=== PATIENT | male | born 1940 | race Caucasian/White ===

== ENCOUNTER → 2018-12-05 | Outpatient (CLI) | payer MEDICARE ==
[2018-12-05 11:46] LABS: HCT 41.1 % (39.0-53.0); HGB 13.5 gm/dL (13.0-17.5); MCH 30.2 pg (25.0-35.0); MCHC 32.8 g/dL (31.0-37.0); MCV 91.9 fL (80.0-100.0); Mean Platelet Volume 7.7; Platelet Count 314 k/uL (150-450); RBC 4.47 m/uL (4.30-5.90); RDW 14.6 % (11.5-15.5); WBC 9.4 k/uL (3.8-10.6)
[2018-12-05 15:33] LABS: ALT 13 U/L (10-49); AST 22 U/L (14-35); African American GFR (CKD) 55.8 (60.0-200.0); Albumin/Globulin Ratio 2.44 (1.60-3.17); Alkaline Phosphatase 79 U/L (41-126); BUN/Creat Ratio 20.71 Ratio (12.00-20.00); Bilirubin, Conjugated <0.20 mg/dL (0.20-0.40); Calcium 10.5 mg/dL (8.7-10.3); Carbon Dioxide 23.4 mmol/L (21.6-31.8); Chloride 114 mmol/L (96-109); Globulin 1.8 g/dL (1.6-3.3); Glucose 102 mg/dL (70-110); Potassium 5.6 mmol/L (3.5-5.5); Sodium 141 mmol/L (135-145); Total Bilirubin 0.5 mg/dL (0.2-1.2); Total Protein 6.2 g/dL (6.2-8.2)
== END | disposition home or self-care (01) ==
LOC: LABWHC1 11:08
PROVIDERS: ATTEND Nurse Practitioner Family
DX: Z51.81 Encounter for therapeutic drug level monitoring (principal)
CPT/HCPCS: 36415; 80053; 82248; 85027

== ENCOUNTER 2019-04-06 16:15 | Emergency (ER) | payer MEDICARE ==
[2019-04-06 16:28] VITALS: BP 104/72; PULSE 91; RESP 17; TEMP 97.6
--- NOTE | 2019-04-06 16:53 | ED ---
General Adult HPI - General Chief complaint: Fall Stated complaint: fall/elbow bleeding Time Seen by Provider: 04/06/19 16:30 Source: patient Mode of arrival: ambulatory Limitations: no limitations - History of Present Illness Initial comments: 78-year-old male patient presents to the emergency department today for evaluation of bleeding wound to the left elbow. Patient experienced a fall out of bed early this morning. States that he hit his elbow on the dresser. Denies hitting his head or losing consciousness. Patient states that he does take Pl avix and aspirin and has been having bleeding from a wound to the left elbow since. He states that they have tried changing the dressing and holding pressure without relief. He denies any other injuries, bony tenderness, pain with movement of the elbow. Patient denies any headache, neck pain, back pain, chest pain, shortness of breath, dizziness, weakness, abdominal pain, nausea, vomiting, or difficulties with bowel movements or urination. - Related Data Allergies Allergy/AdvReac Type Severity Reaction Status Date / Time morphine Allergy Hallucinati Verified 04/06/19 16:28 ons Review of Systems ROS Statement: Those systems with pertinent positive or pertinent negative responses have been documented in the HPI. ROS Other: All systems not noted in ROS Statement are negative. Past Medical History Past Medical History: Hyperlipidemia, Hypertension Additional Past Medical History / Comment(s): parkinson History of Any Multi-Drug Resistant Organisms: None Reported Past Surgical History: Back Surgery, Orthopedic Surgery Additional Past Surgical History / Comment(s): shunt Past Psychological History: No Psychological Hx Reported Smoking Status: Never smoker Past Alcohol Use History: None Reported Past Drug Use History: Marijuana General Exam Limitations: no limitations General appearance: alert, in no apparent distress, other (This is a well- developed, well-nourished elderly male patient in no acute distress. Vital signs upon presentation are temperature 97.6F, pulse 91, respirations 17, blood pressure 104/72, pulse ox 95% on room air.) Eye exam: Present: normal appearance, PERRL, EOMI. Absent: scleral icterus, conjunctival injection, periorbital swelling Neck exam: Present: normal inspection, full ROM, other (Nontender, no step-off, no deformity to firm midline palpation of the posterior cervical spine. Full range of motion without pain or limitation.). Absent: tenderness, meningismus, lymphadenopathy Respiratory exam: Present: normal lung sounds bilaterally. Absent: respiratory distress, wheezes, rales, rhonchi, stridor Cardiovascular Exam: Present: regular rate, normal rhythm, normal heart sounds. Absent: systolic murmur, diastolic murmur, rubs, gallop, clicks GI/Abdominal exam: Present: soft, normal bowel sounds. Absent: distended, tenderness, guarding, rebound, rigid Extremities exam: Present: full ROM, normal capillary refill, other (There is a 2 cm skin tear noted to the left elbow. No bony tenderness. There is active bleeding noted. Skin is otherwise pink, warm, dry. Cap refills less than 3 seconds. Radial pulses 2+ and equal bilaterally.). Absent: normal inspection, tenderness, pedal edema, joint swelling, calf tenderness Back exam: Present: normal inspection, other (Nontender, no step-off, no deformity to firm midline palpation of the thoracic and lumbar vertebrae. Full range of motion without pain or limitation.). Absent: vertebral tenderness Neurological exam: Present: alert, oriented X3, CN II-XII intact Psychiatric exam: Present: normal affect, normal mood Skin exam: Present: warm, dry, intact, normal color. Absent: rash Course Vital Signs 04/06/19 16:24 Temperature 97.6 F Pulse Rate 91 Respiratory 17 Rate Blood Pressure 104/72 O2 Sat by Pulse 95 Oximetry Medical Decision Making - Medical Decision Making 78-year-old male patient presented to the emergency department today for evaluation of bleeding wound to the left elbow. Physical examination did reveal 2 cm skin tear noted with active bleeding. Area was cleansed and pressure dressing applied. Patient was educated regarding wound care. They're instructed to follow-up with the primary care physician for recheck in 1-2 days. Return parameters discussed in detail. Patient verbalizes understanding and agrees with this plan. Disposition Clinical Impression: Skin tear of left upper extremity Disposition: HOME SELF-CARE Condition: Good Instructions (If sedation given, give patient instructions): Skin Tear (ED) Additional Instructions: Keep pressure dressing in place for 24 hours. Loosen if it seems too tight or you experience numbness, tingling, or cold sensation to the left arm/hand. Follow up with your primary care physician for recheck in 1-2 days. Return to the emergency department immediately for any new, worsening, or concerning symptoms. Is patient prescribed a controlled substance at d/c from ED?: No Referrals: Staci Jc DO [Primary Care Provider] - 1-2 days Time of Disposition: 16:52
== END 2019-04-06 17:11 | disposition home or self-care (01) ==
LOC: EC 16:15
DX: S41.112A Laceration without foreign body of left upper arm, initial encounter (principal); E78.5 Hyperlipidemia, unspecified; G20 Parkinson's disease; I10 Essential (primary) hypertension; Z79.02 Long term (current) use of antithrombotics/antiplatelets; Z88.5 Allergy status to narcotic agent; W06.XXXA Fall from bed, initial encounter; Y93.89 Activity, other specified; Y92.003 Bedroom of unspecified non-institutional (private) residence as the place of occurrence of the external cause
CPT/HCPCS: 99283

== ENCOUNTER 2019-04-27 12:32 | Observation (INO) | payer MEDICARE ==
[2019-04-27 12:55] LABS: Glucose,Whole Blood 152 mg/dL (75-99)
[2019-04-27 13:22] LABS: Basophils # (A) 0.1 k/uL (0-0.2); Basophils % (A) 1 %; Eosinophils # (A) 0.2 k/uL (0-0.7); Eosinophils % (A) 2 %; HGB 11.8 gm/dL (13.0-17.5); Hypochromasia Slight; Lymphocytes # (A) 1.1 k/uL (1.0-4.8); Lymphocytes % (A) 11 %; MCH 30.8 pg (25.0-35.0); MCHC 32.9 g/dL (31.0-37.0); MCV 93.8 fL (80.0-100.0); Mean Platelet Volume 7.3; Monocytes # (A) 0.8 k/uL (0-1.0); Monocytes % (A) 7 %; Neutrophils % (A) 78 %; Platelet Count 282 k/uL (150-450); RBC 3.84 m/uL (4.30-5.90); WBC 10.3 k/uL (3.8-10.6)
[2019-04-27 13:37] LABS: Albumin 3.6 g/dL (3.5-5.0); Calcium 10.4 mg/dL (8.4-10.2); Potassium 4.6 mmol/L (3.5-5.1); Total Bilirubin 0.8 mg/dL (0.2-1.3); Total Protein 6.2 g/dL (6.3-8.2)
[2019-04-27 13:38] LABS: INR 0.9 (<1.2); Prothrombin Time 9.7 sec (9.0-12.0)
[2019-04-27 13:44] LABS: Partial Thromboplastin Time 21.1 sec (22.0-30.0)
--- NOTE | 2019-04-27 14:27 | CT ---
EXAMINATION TYPE: CT brain wo con DATE OF EXAM: 04/27/2019 COMPARISON: None HISTORY: Confusion, speech difficulties CT DLP: 1092.[address] of the brain was performed. The ventricles, basal cisterns and sulci overlying the cerebral convexities demonstrate mild to moder ate enlargement. Right frontal shunt catheter is noted to be in place with its distal tip within the right lateral ventricle. There is no evidence for intracranial hemorrhage or sulcal effacement. There is decreased attenuation about the periventricular white matter and deep white matter of both c erebral hemispheres, compatible with chronic small vessel ischemia. Differential diagnosis does inclu de demyelination. No mass effects are seen.No midline shift. Osseous calvarium is intact. If symptoms persist consider MRI. IMPRESSION: 1. Age related atrophic and chronic small vessel ischemic change without acute intracranial process s een at this time.
--- NOTE | 2019-04-27 15:22 | ED ---
Dizziness HPI - General Chief Complaint: Dizziness Stated Complaint: Dizziness Time Seen by Provider: 04/27/19 12:40 Source: EMS Mode of arrival: EMS Limitations: no limitations - History of Present Illness Initial Comments: The patient is a 78-year-old male with past history of Parkinson's disease, hypertension and hyperlipidemia who presents to the emergency room with reported altered mental status. at bedside provides majority of the history. She states that today the patient had an appointment in Dr. Walker's office. En route to this facility the patient seemed more confused with slurred speech. They arrived to the facility and the patient's blood pressure was noted to be 72/43. They performed an Accu-Chek on the patient which was normal. The patient had difficulties answering where he lived. Because of these concerning symptoms he was transferred to the hospital for further evaluation. states that the patient has had previous episodes like this for the past year. They occur approximately 3 times per week. They will last anywhere from 20 minutes to several hours. She told Dr. Walker's office about this and there was concern for possible TIAs. The patient was told to follow-up with a branch lead however the has not made him an appointment yet. The patient states he feels confused. NIH is 0. No lateralizing symptoms. He is alert and oriented 3. No blunt head trauma. Blood pressure has been variable at home. He was recently started on was lisinopril 3 weeks ago. He denies any headaches or visual changes. No nausea or vomiting. Denies any chest pain or shortness of breath. There are no other alleviating, precipitating or modifying factors - Related Data Home Medications Medication Instructions Recorded Confirmed Aspirin [Adult Low Dose Aspirin EC] 81 mg PO DAILY 04/27/19 04/27/19 Atorvastatin [Lipitor] 20 mg PO HS 04/27/19 04/27/19 Clopidogrel Bisulfate [Plavix] 75 mg PO HS 04/27/19 04/27/19 Docusate [Colace] 100 mg PO DAILY@1800 04/27/19 04/27/19 Docusate [Colace] 200 mg PO QAM 04/27/19 04/27/19 Lactobacillus Rhamnosus GG 1 cap PO DAILY@1400 04/27/19 04/27/19 [Culturelle] Levothyroxine Sodium [Synthroid] 125 mcg PO DAILY 04/27/19 04/27/19 Mirabegron [Myrbetriq] 50 mg PO HS 04/27/19 04/27/19 Rivastigmine 4.6MG/24Hr Patch 1 patch TRANSDERM Q24HR 04/28/19 04/28/19 [Exelon 4.6MG/24Hr Patch] Previous Rx's Medication Instructions Recorded Carbidopa-Levodopa ER 50-200Mg 1 each PO QID tablet.er 04/30/19 [Sinemet CR 50-200 mg] Carbidopa/Levodopa/Entacapone 1 tab PO TID 04/30/19 [Stalevo 200] Lisinopril [Zestril] 10 mg PO DAILY #30 tab 04/30/19 Metoprolol Tartrate [Lopressor] 25 mg PO BID #60 tablet 04/30/19 Allergies Allergy/AdvReac Type Severity Reaction Status Date / Time morphine Allergy Hallucinati Verified 04/27/19 15:43 ons Review of Systems ROS Statement: Those systems with pertinent positive or pertinent negative responses have been documented in the HPI. ROS Other: All systems not noted in ROS Statement are negative. Past Medical History Past Medical History: Hyperlipidemia, Hypertension Additional Past Medical History / Comment(s): parkinson History of Any Multi-Drug Resistant Organisms: None Reported Past Surgical History: Back Surgery, Orthopedic Surgery Additional Past Surgical History / Comment(s): shunt Past Psychological History: No Psychological Hx Reported Smoking Status: Never smoker Past Alcohol Use History: None Reported Past Drug Use History: Marijuana - Past Family History Brother(s) Additional Family Medical History / Comment(s): exposed to agent orgnae Father History Unknown: Yes Mother Additional Family Medical History / Comment(s): passed in 2015 of old age at 95 General Exam Limitations: no limitations General appearance: alert, in no apparent distress Head exam: Present: atraumatic, normocephalic Eye exam: Present: normal appearance, PERRL ENT exam: Present: normal exam, normal oropharynx Neck exam: Present: normal inspection. Absent: tenderness, meningismus Respiratory exam: Present: normal lung sounds bilaterally. Absent: respiratory distress, wheezes, rales, rhonchi Cardiovascular Exam: Present: regular rate, normal rhythm GI/Abdominal exam: Present: soft. Absent: distended, tenderness, guarding, rebound, rigid Neurological exam: Present: alert, oriented X3, CN II-XII intact, normal gait, other (resting tremor. Finger to nose symmetric bilaterally) Psychiatric exam: Present: normal affect, normal mood Skin exam: Present: warm, dry, intact Course Vital Signs 04/27/19 04/27/19 04/27/19 12:35 14:31 15:41 Temperature 97.3 F L 98.0 F Pulse Rate 70 71 76 Respiratory 16 16 16 Rate Blood Pressure 119/74 175/83 169/84 O2 Sat by Pulse 99 97 99 Oximetry 04/27/19 16:52 Temperature Pulse Rate 80 Respiratory 16 Rate Blood Pressure 132/76 O2 Sat by Pulse 99 Oximetry EKG Findings - EKG Comments: EKG Findings:: EKG demonstrates a normal sinus rhythm with ventricular rate of 69. WA interval 206. QRS 86. QTC of 417. No acute ST segment elevations or depressions concerning for ischemic changes. Medical Decision Making - Medical Decision Making Upon arrival the patient was placed into room 5. NIH stroke scale is 0 at this time. The patient is alert and oriented 3. Blood pressure is stable. Lab oratory studies were conducted. CBC, CMP and coags are unremarkable. Blood sugar is 126. A 12-lead EKG is performed which showed trace no acute findings. The patient was sent for a CT of his brain because of his altered mental status complaints. It demonstrates age-related atrophic and chronic small vessel ischemic change without acute intracranial process. I discussed this with the patient and at bedside. I called and discussed the case with Dr. Mendoza. Dr. Mendoza does request hospital admission with neurology and cardiac consult. The patient's currently waiting awaiting a bed on the floor - Lab Data Result diagrams: 04/29/19 05:42 04/29/19 05:42 Lab Results 04/27/19 04/27/19 04/27/19 Range/Units 12:45 12:45 12:45 WBC 10.3 (3.8-10.6) k/uL RBC 3.84 L (4.30-5.90) m/uL Hgb 11.8 L (13.0-17.5) gm/dL Hct 36.0 L (39.0-53.0) % MCV 93.8 (80.0-100.0) fL MCH 30.8 (25.0-35.0) pg MCHC 32.9 (31.0-37.0) g/dL RDW 13.0 (11.5-15.5) % Plt Count 282 (150-450) k/uL Neutrophils % 78 % Lymphocytes % 11 % Monocytes % 7 % Eosinophils % 2 % Basophils % 1 % Neutrophils # 8.0 H (1.3-7.7) k/uL Lymphocytes # 1.1 (1.0-4.8) k/uL Monocytes # 0.8 (0-1.0) k/uL Eosinophils # 0.2 (0-0.7) k/uL Basophils # 0.1 (0-0.2) k/uL Hypochromasia Slight PT 9.7 (9.0-12.0) sec INR 0.9 (<1.2) APTT 21.1 L (22.0-30.0) sec Sodium 143 (137-145) mmol/L Potassium 4.6 (3.5-5.1) mmol/L Chloride 114 H (98-107) mmol/L Carbon Dioxide 22 (22-30) mmol/L Anion Gap 7 mmol/L BUN 19 (9-20) mg/dL Creatinine 1.12 (0.66-1.25) mg/dL Est GFR (CKD-EPI)AfAm 73 (>60 ml/min/1.73 sqM) Est GFR (CKD-EPI)NonAf 63 (>60 ml/min/1.73 sqM) Glucose 126 H (74-99) mg/dL POC Glucose (mg/dL) (75-99) mg/dL POC Glu Cleaning And Maintenance Worker ID Estimated Ave Glu mg/dL Hemoglobin A1c (4.0-6.0) % Calcium 10.4 H (8.4-10.2) mg/dL Magnesium (1.6-2.3) mg/dL Total Bilirubin 0.8 (0.2-1.3) mg/dL AST 18 (17-59) U/L ALT 11 L (21-72) U/L Alkaline Phosphatase 63 (38-126) U/L Troponin I (0.000-0.034) ng/mL Total Protein 6.2 L (6.3-8.2) g/dL Albumin 3.6 (3.5-5.0) g/dL Triglycerides (<150) mg/dL Cholesterol (<200) mg/dL LDL Cholesterol, Calc (0-99) mg/dL HDL Cholesterol (40-60) mg/dL TSH (0.465-4.680) mIU/L Free T4 (0.78-2.19) ng/dL 04/27/19 04/27/19 04/28/19 Range/Units 12:45 12:54 06:15 WBC 6.9 (3.8-10.6) k/uL RBC 3.69 L (4.30-5.90) m/uL Hgb 11.6 L (13.0-17.5) gm/dL Hct 34.5 L (39.0-53.0) % MCV 93.4 (80.0-100.0) fL MCH 31.5 (25.0-35.0) pg MCHC 33.7 (31.0-37.0) g/dL RDW 12.8 (11.5-15.5) % Plt Count 271 (150-450) k/uL Neutrophils % 69 % Lymphocytes % 16 % Monocytes % 7 % Eosinophils % 4 % Basophils % 2 % Neutrophils # 4.8 (1.3-7.7) k/uL Lymphocytes # 1.1 (1.0-4.8) k/uL Monocytes # 0.5 (0-1.0) k/uL Eosinophils # 0.3 (0-0.7) k/uL Basophils # 0.2 (0-0.2) k/uL Hypochromasia PT (9.0-12.0) sec INR (<1.2) APTT (22.0-30.0) sec Sodium (137-145) mmol/L Potassium (3.5-5.1) mmol/L Chloride (98-107) mmol/L Carbon Dioxide (22-30) mmol/L Anion Gap mmol/L BUN (9-20) mg/dL Creatinine (0.66-1.25) mg/dL Est GFR (CKD-EPI)AfAm (>60 ml/min/1.73 sqM) Est GFR (CKD-EPI)NonAf (>60 ml/min/1.73 sqM) Glucose (74-99) mg/dL POC Glucose (mg/dL) 152 H (75-99) mg/dL POC Glu Cleaning And Maintenance Worker ID Abi Rodríguez [address] Glu mg/dL Hemoglobin A1c (4.0-6.0) % Calcium (8.4-10.2) mg/dL Magnesium (1.6-2.3) mg/dL Total Bilirubin (0.2-1.3) mg/dL AST (17-59) U/L ALT (21-72) U/L Alkaline Phosphatase (38-126) U/L Troponin I <0.012 (0.000-0.034) ng/mL Total Protein (6.3-8.2) g/dL Albumin (3.5-5.0) g/dL Triglycerides (<150) mg/dL Cholesterol (<200) mg/dL LDL Cholesterol, Calc (0-99) mg/dL HDL Cholesterol (40-60) mg/dL TSH (0.465-4.680) mIU/L Free T4 (0.78-2.19) ng/dL 04/28/19 04/28/19 04/28/19 Range/Units 06:15 06:15 06:15 WBC (3.8-10.6) k/uL RBC (4.30-5.90) m/uL Hgb (13.0-17.5) gm/dL Hct (39.0-53.0) % MCV (80.0-100.0) fL MCH (25.0-35.0) pg MCHC (31.0-37.0) g/dL RDW (11.5-15.5) % Plt Count (150-450) k/uL Neutrophils % % Lymphocytes % % Monocytes % % Eosinophils % % Basophils % % Neutrophils # (1.3-7.7) k/uL Lymphocytes # (1.0-4.8) k/uL Monocytes # (0-1.0) k/uL Eosinophils # (0-0.7) k/uL Basophils # (0-0.2) k/uL Hypochromasia PT (9.0-12.0) sec INR (<1.2) APTT (22.0-30.0) sec Sodium 143 (137-145) mmol/L Potassium 4.7 (3.5-5.1) mmol/L Chloride 113 H (98-107) mmol/L Carbon Dioxide 28 (22-30) mmol/L Anion Gap 2 mmol/L BUN 20 (9-20) mg/dL Creatinine 1.08 (0.66-1.25) mg/dL Est GFR (CKD-EPI)AfAm 76 (>60 ml/min/1.73 sqM) Est GFR (CKD-EPI)NonAf 66 (>60 ml/min/1.73 sqM) Glucose 101 H (74-99) mg/dL POC Glucose (mg/dL) (75-99) mg/dL POC Glu Cleaning And Maintenance Worker ID Estimated Ave Glu mg/dL 111 Hemoglobin A1c 5.5 (4.0-6.0) % Calcium 10.3 H (8.4-10.2) mg/dL Magnesium (1.6-2.3) mg/dL Total Bilirubin (0.2-1.3) mg/dL AST (17-59) U/L ALT (21-72) U/L Alkaline Phosphatase (38-126) U/L Troponin I (0.000-0.034) ng/mL Total Protein (6.3-8.2) g/dL Albumin (3.5-5.0) g/dL Triglycerides 150 H (<150) mg/dL Cholesterol 135 (<200) mg/dL LDL Cholesterol, Calc 81 (0-99) mg/dL HDL Cholesterol 24 L (40-60) mg/dL TSH 0.050 L (0.465-4.680) mIU/L Free T4 1.36 (0.78-2.19) ng/dL 04/29/19 04/29/19 04/29/19 Range/Units 05:42 05:42 05:42 WBC 6.4 (3.8-10.6) k/uL RBC 3.59 L (4.30-5.90) m/uL Hgb 11.2 L (13.0-17.5) gm/dL Hct 33.3 L (39.0-53.0) % MCV 92.8 (80.0-100.0) fL MCH 31.3 (25.0-35.0) pg MCHC 33.7 (31.0-37.0) g/dL RDW 12.8 (11.5-15.5) % Plt Count 251 (150-450) k/uL Neutrophils % 65 % Lymphocytes % 19 % Monocytes % 9 % Eosinophils % 4 % Basophils % 1 % Neutrophils # 4.1 (1.3-7.7) k/uL Lymphocytes # 1.2 (1.0-4.8) k/uL Monocytes # 0.6 (0-1.0) k/uL Eosinophils # 0.3 (0-0.7) k/uL Basophils # 0.1 (0-0.2) k/uL Hypochromasia PT (9.0-12.0) sec INR (<1.2) APTT (22.0-30.0) sec Sodium 143 (137-145) mmol/L Potassium 4.0 (3.5-5.1) mmol/L Chloride 112 H (98-107) mmol/L Carbon Dioxide 26 (22-30) mmol/L Anion Gap 5 mmol/L BUN 20 (9-20) mg/dL Creatinine 0.95 (0.66-1.25) mg/dL Est GFR (CKD-EPI)AfAm 89 (>60 ml/min/1.73 sqM) Est GFR (CKD-EPI)NonAf 77 (>60 ml/min/1.73 sqM) Glucose 101 H (74-99) mg/dL POC Glucose (mg/dL) (75-99) mg/dL POC Glu Cleaning And Maintenance Worker ID Estimated Ave Glu mg/dL Hemoglobin A1c (4.0-6.0) % Calcium 10.0 (8.4-10.2) mg/dL Magnesium 2.0 (1.6-2.3) mg/dL Total Bilirubin (0.2-1.3) mg/dL AST (17-59) U/L ALT (21-72) U/L Alkaline Phosphatase (38-126) U/L Troponin I (0.000-0.034) ng/mL Total Protein (6.3-8.2) g/dL Albumin (3.5-5.0) g/dL Triglycerides (<150) mg/dL Cholesterol (<200) mg/dL LDL Cholesterol, Calc (0-99) mg/dL HDL Cholesterol (40-60) mg/dL TSH (0.465-4.680) mIU/L Free T4 (0.78-2.19) ng/dL Disposition Clinical Impression: Encephalopathy, TIA (transient ischemic attack) Disposition: ADMITTED IP TO THIS HOSP Condition: Stable Is patient prescribed a controlled substance at d/c from ED?: No Decision to Admit Reason: Admit from EC Decision Date: 04/27/19 Decision Time: 15:24
[2019-04-27] MEDS ORDERED: NALOXONE 0.4 MG/ML 1 ML VIAL IV PRN (15:24)
[2019-04-27] MEDS: ATORVASTATIN 20 MG TAB PO SCH (19:59)
[2019-04-27] MEDS: CLOPIDOGREL 75 MG TAB PO SCH (19:59)
[2019-04-27] MEDS: DOCUSATE 100 MG CAP PO SCH (19:59)
[2019-04-27] MEDS: CARBIDOPA-LEVODOPA ER 50-200MG 1 EACH TABLET.ER PO SCH ×2 (20:00→21:38)
[2019-04-27] MEDS: CARBIDOPA PO SCH ×2 (20:08→21:39)
[2019-04-27] MEDS: ENTACAPONE PO SCH ×2 (20:08→21:39)
[2019-04-27] MEDS: LEVODOPA PO SCH ×2 (20:08→21:39)
[2019-04-27] MEDS ORDERED: PATIENT'S OWN (Mirabegron [Myrbetriq] 50 MG) PO SCH (21:00)
[2019-04-28] MEDS: LEVOTHYROXINE 125 MCG TAB PO SCH (06:42)
[2019-04-28 07:10] LABS: Basophils # (A) 0.2 k/uL (0-0.2); Basophils % (A) 2 %; Eosinophils # (A) 0.3 k/uL (0-0.7); Eosinophils % (A) 4 %; HCT 34.5 % (39.0-53.0); HGB 11.6 gm/dL (13.0-17.5); Lymphocytes # (A) 1.1 k/uL (1.0-4.8); Lymphocytes % (A) 16 %; MCH 31.5 pg (25.0-35.0); MCHC 33.7 g/dL (31.0-37.0); MCV 93.4 fL (80.0-100.0); Mean Platelet Volume 7.4; Monocytes # (A) 0.5 k/uL (0-1.0); Monocytes % (A) 7 %; Neutrophils # (A) 4.8 k/uL (1.3-7.7); Neutrophils % (A) 69 %; Platelet Count 271 k/uL (150-450); RBC 3.69 m/uL (4.30-5.90); RDW 12.8 % (11.5-15.5); WBC 6.9 k/uL (3.8-10.6)
[2019-04-28 07:31] LABS: Calcium 10.3 mg/dL (8.4-10.2); Potassium 4.7 mmol/L (3.5-5.1)
--- NOTE | 2019-04-28 08:20 | P.CRDCN ---
History of Present Illness Consult date: 04/28/19 Requesting physician: Sathish Jc Consult reason: sycope Chief complaint: Dizziness, hypotension History of present illness: This is a pleasant 78-year-old gentleman with documented history of hypertension although his states that his blood pressure is been quite labile, hyperlipidemia, hypothyroidism, Parkinson's, with history of brain shunt. He was at his primary care doctor's office yesterday, became quite pale in color, was very dizzy, blood pressure at that time was documented to be around 70 systolic. Blood sugar in the range of 190 at that time. At that time the patient did also have some slurring of speech which she also appears to get on these occasions according to the . He denies any chest pain, palpitations, or shortness of breath. Apparently the patient has been having these episodes over the past few months, he had a Holter monitor proximally a month ago for that reason which according to the has been reported to be normal. The patient does state that when she gets up from a sitting to standing position he becomes very dizzy and feels like he may pass out at times. CAT scan of the brain showed age-related atrophic and chronic small vessel ischemic change without any acute intracranial process. The patient's blood pressure on arrival here was 120/70 with a heart rate of 70, 99% on room air. Blood pressure this morning 176/84 with a heart rate in the 70s. Afebrile. 96% on room air. White blood cell count is normal, hemoglobin 11.6, platelet count 271. Sodium 143, potassium 4.7, BUN 20, creatinine 1.0. Troponin is negative. Past Medical History Past Medical History: Hyperlipidemia, Hypertension Additional Past Medical History / Comment(s): parkinson, pt is a&o x3 but dont sure about history History of Any Multi-Drug Resistant Organisms: None Reported Past Surgical History: Back Surgery, Orthopedic Surgery Additional Past Surgical History / Comment(s): shunt in the head for the arnold placed in [place], [place] at [facility] Past Anesthesia/Blood Transfusion Reactions: No Reported Reaction Past Psychological History: No Psychological Hx Reported Smoking Status: Never smoker Past Alcohol Use History: None Reported Past Drug Use History: Marijuana - Past Family History Brother(s) Additional Family Medical History / Comment(s): exposed to agent orgnae Father History Unknown: Yes Mother Additional Family Medical History / Comment(s): passed in 2015 of old age at 95 Medications and Allergies Home Medications Medication Instructions Recorded Confirmed Type Aspirin [Adult Low Dose Aspirin EC] 81 mg PO DAILY 04/27/19 04/27/19 History Atorvastatin [Lipitor] 20 mg PO HS 04/27/19 04/27/19 History Carbidopa/Levodopa [Sinemet CR 1 tab PO QID 04/27/19 04/27/19 History 50-200 mg] Carbidopa/Levodopa/Entacapone 1 tab PO QID 04/27/19 04/27/19 History [Stalevo 200] Clopidogrel Bisulfate [Plavix] 75 mg PO HS 04/27/19 04/27/19 History Docusate [Colace] 100 mg PO DAILY@1800 04/27/19 04/27/19 History Docusate [Colace] 200 mg PO QAM 04/27/19 04/27/19 History Lactobacillus Rhamnosus GG 1 cap PO DAILY@1400 04/27/19 04/27/19 History [Culturelle] Levothyroxine Sodium [Synthroid] 125 mcg PO DAILY 04/27/19 04/27/19 History Lisinopril [Zestril] 2.5 mg PO DAILY 04/27/19 04/27/19 History Mirabegron [Myrbetriq] 50 mg PO HS 04/27/19 04/27/19 History Allergies Allergy/AdvReac Type Severity Reaction Status Date / Time morphine Allergy Hallucinati Verified 04/27/19 15:43 ons Physical Exam Vitals: Vital Signs Temp Pulse Pulse Resp BP BP Pulse Ox 04/28/19 04:00 98.5 F 72 18 176/84 96 04/27/19 22:11 97.2 F L 76 17 150/73 97 04/27/19 20:00 98.3 F 76 18 174/74 97 04/27/19 18:32 98.0 F 73 18 163/73 96 04/27/19 16:52 80 16 132/76 99 04/27/19 15:41 98.0 F 76 16 169/84 99 04/27/19 14:31 71 16 175/83 97 04/27/19 12:35 97.3 F L 70 16 119/74 99 Intake and Output 1104/28/19 04/28/19 22:59 06:59 14:59 Intake Total 118 Output Total 300 Balance -182 Intake: Oral 118 Output: Urine 300 Other: Voiding Method Urinal Urinal # Voids 1 Weight 91.172 kg 88.8 kg PHYSICAL EXAMINATION: GENERAL: 78-year-old gentleman in no acute distress at the time of my examination HEENT: Head is atraumatic, normocephalic. Pupils equal, round. Sclera anicteric. Conjunctiva are clear. Mucous membranes of the mouth are moist. Neck is supple. There is no elevated jugular venous pressure. No carotid bruit is heard. HEART EXAMINATION: Heart S1, S2 normal. No murmur or gallop heard. CHEST EXAMINATION: Lungs are clear to auscultation and precussion. No chest wall tenderness is noted on palpation or with deep breathing. ABDOMEN: Soft, nontender. Bowel sounds are heard. No organomegaly noted. EXTREMITIES: 2+ peripheral pulses with no evidence of peripheral edema and no calf tenderness noted. NEUROLOGIC patient is awake, alert and oriented 3 . . Results 04/28/19 06:15 04/28/19 06:15 Cardiac Enzymes 04/27/19 04/27/19 Range/Units 12:45 12:45 AST 18 (17-59) U/L Troponin I <0.012 (0.000-0.034) ng/mL Coagulation 04/27/19 Range/Units 12:45 PT 9.7 (9.0-12.0) sec APTT 21.1 L (22.0-30.0) sec CBC 04/27/19 04/28/19 Range/Units 12:45 06:15 WBC 10.3 6.9 (3.8-10.6) k/uL RBC 3.84 L 3.69 L (4.30-5.90) m/uL Hgb 11.8 L 11.6 L (13.0-17.5) gm/dL Hct 36.0 L 34.5 L (39.0-53.0) % Plt Count 282 271 (150-450) k/uL Comprehensive Metabolic Panel 04/27/19 04/28/19 Range/Units 12:45 06:15 Sodium 143 143 (137-145) mmol/L Potassium 4.6 4.7 (3.5-5.1) mmol/L Chloride 114 H 113 H (98-107) mmol/L Carbon Dioxide 22 28 (22-30) mmol/L BUN 19 20 (9-20) mg/dL Creatinine 1.12 1.08 (0.66-1.25) mg/dL Glucose 126 H 101 H (74-99) mg/dL Calcium 10.4 H 10.3 H (8.4-10.2) mg/dL AST 18 (17-59) U/L ALT 11 L (21-72) U/L Alkaline Phosphatase 63 (38-126) U/L Total Protein 6.2 L (6.3-8.2) g/dL Albumin 3.6 (3.5-5.0) g/dL Current Medications Generic Name Dose Route Start Last Admin Trade Name Freq PRN Reason Stop Dose Admin Aspirin 81 mg 04/28/19 09:00 Aspirin PO DAILY [facility] Atorvastatin Calcium 20 mg 04/27/19 21:00 04/27/19 19:59 Lipitor PO 20 mg HS [facility] Administration Carbidopa/Levodopa 1 each 04/27/19 18:00 04/27/19 21:38 Sinemet Er 50-200 PO Not Given QID [facility] Clopidogrel Bisulfate 75 mg 04/27/19 21:00 04/27/19 19:59 Plavix PO 75 mg HS [facility] Administration Docusate Sodium 100 mg 04/27/19 18:00 04/27/19 19:59 Colace PO 100 mg DAILY@1800 [facility] Administration Docusate Sodium 200 mg 04/28/19 09:00 Colace PO QAM [facility] Lactobacillus Acidoph/Bulgaricus 1 each 04/28/19 14:00 Lactinex PO DAILY@1400 [facility] Levothyroxine Sodium 125 mcg 04/28/19 06:30 04/28/19 06:42 Synthroid PO 125 mcg 0630 [facility] Administration Lisinopril 2.5 mg 04/28/19 09:00 Zestril PO DAILY [facility] Naloxone HCl 0.2 mg 04/27/19 15:24 Narcan IV Q2M PRN Opioid Reversal Patient's Own Med ( 1 tab 04/27/19 18:00 04/27/19 21:39 Carbidopa/Levodopa/ PO Not Given Entacapone [Stalevo QID CELESTE 200] 1 Tab) Patient's Own ( 50 mg 04/27/19 21:00 04/27/19 20:09 Mirabegron [ PO Not Given Myrbetriq] 50 Mg) HS CELESTE Intake and Output 04/27/19 04/28/19 04/28/19 22:59 06:59 14:59 Intake Total 118 Output Total 300 Balance -182 Intake: Oral 118 Output: Urine 300 Other: Voiding Method Urinal Urinal # Voids 1 Weight 91.172 kg 88.8 kg 04/28/19 06:15 04/28/19 06:15 EKG Interpretations (text) EKG shows a normal sinus rhythm with no acute changes. Assessment and Plan Plan: Assessment and plan #1 symptoms of dizziness, slurring of speech, near syncope. Likely secondary to orthostatic hypotension, rule out other cardiac causes, rule out possible TIA #2 Parkinson's with history of brain shunt #3 hypotension #4 history of hypertension #5 hypothyroidism #6 hyperlipidemia Plan We will obtain an echocardiogram with Doppler study. We will also check orthostatic heart rate and blood pressure every shift. Patient may also benefit from a tilt table test. Obtain a copy of the 24-hour Holter the patient recently been in his primary care doctor's office. Further recommendations to follow. DNP note has been reviewed, I agree with a documented findings and plan of care. Patient was seen and examined.
[2019-04-28] MEDS: CARBIDOPA-LEVODOPA ER 50-200MG 1 EACH TABLET.ER PO SCH ×4 (08:33→21:21)
[2019-04-28] MEDS: LISINOPRIL 2.5 MG TAB PO SCH (08:33)
[2019-04-28] MEDS: DOCUSATE 100 MG CAP PO SCH ×2 (08:33→17:09)
[2019-04-28] MEDS: ASPIRIN 81 MG PO SCH (08:33)
[2019-04-28] MEDS: ENTACAPONE PO SCH (08:57)
[2019-04-28] MEDS: LEVODOPA PO SCH (08:57)
[2019-04-28] MEDS: CARBIDOPA PO SCH (08:57)
[2019-04-28] MEDS: RIVASTIGMINE 4.6MG/24HR PATCH TRANSDERM SCH (09:47)
[2019-04-28] MEDS: ACETAMINOPHEN TAB 325 MG TAB PO PRN (09:47)
--- NOTE | 2019-04-28 10:02 | ECHOF ---
Referral Reason:syncope MEASUREMENTS -------- HEIGHT: 172.7 cm WEIGHT: 88.5 kg BP: 176/84 RVIDd: 3.1 cm (< 3.3) IVSd: 1.6 cm (0.6 - 1.1) LVIDd: 4.2 cm (3.9 - 5.3) LVPWd: 1.3 cm (0.6 - 1.1) IVSs: 1.9 cm LVIDs: 3.0 cm LVPWs: 1.9 cm LA Diam: 3.8 cm (2.7 - 3.8) LAESV Index (A-L): 29.83 ml/m Ao Diam: 4.2 cm (2.0 - 3.7) AV Cusp: 2.4 cm (1.5 - 2.6) MV EXCURSION: 18.048 mm (> 18.000) MV EF SLOPE: 71 mm/s (70 - 150) EPSS: 0.8 cm MV E Melvin: 0.97 m/s MV DecT: 215 ms MV A Melvin: 1.24 m/s MV E/A Ratio: 0.78 AR PHT: 544 ms RAP: 5.00 mmHg RVSP: 29.49 mmHg TAPSE: 20.39 mm FINDINGS -------- Sinus rhythm. This was a technically good study. The left ventricular size is normal. There is moderate concentric left ventricular hypertrophy. O verall left ventricular systolic function is normal with, an EF between 60 - 65 %. The diastolic fi lling pattern is normal for the age of the patient 12.08. The right ventricle is normal in size. Normal LA size by volume 22+/-6 ml/m2. The right atrium is normal in size. Interatrial and interventricular septum intact. The aortic valve is trileaflet and appears structurally normal. There is mild aortic regurgitation. The mitral valve is normal. Mild tricuspid regurgitation present. Right ventricular systolic pressure is normal at < 35 mmHg. Trace/mild (physiologic) pulmonic regurgitation. The aortic root is dilated measuring 4.2cm. Normal inferior vena cava with normal inspiratory collapse consistent with estimated right atrial pre ssure of 5 mmHg. There is no pericardial effusion. CONCLUSIONS -------- 1. Sinus rhythm. 2. This was a technically good study. 3. The left ventricular size is normal. 4. There is moderate concentric left ventricular hypertrophy. 5. Overall left ventricular systolic function is normal with, an EF between 60 - 65 %. 6. The diastolic filling pattern is normal for the age of the patient 12.08 7. The right ventricle is normal in size. 8. Normal LA size by volume 22+/-6 ml/m2. 9. The right atrium is normal in size. 10. Interatrial and interventricular septum intact. 11. The aortic valve is trileaflet and appears structurally normal. 12. There is mild aortic regurgitation. 13. The mitral valve is normal. 14. Mild tricuspid regurgitation present. 15. Right ventricular systolic pressure is normal at < 35 mmHg. 16. Trace/mild (physiologic) pulmonic regurgitation. 17. The aortic root is dilated measuring 4.2cm. 18. Normal inferior vena cava with normal inspiratory collapse consistent with estimated right atrial pressure of 5 mmHg. 19. There is no pericardial effusion. [employer]: Maria Isabel Aguilar RDCS
[2019-04-28] MEDS: LACTOBACILLUS ACIDOPH & BULGAR 1 EACH PACKET PO SCH (11:59)
[2019-04-28] MEDS: STALEVO PO SCH ×3 (12:08→21:21)
[2019-04-28 12:10] LABS: T4, Free (Free Thyroxine) 1.36 ng/dL (0.78-2.19)
[2019-04-28 18:52] LABS: Hemoglobin A1C 5.5 % (4.0-6.0)
--- NOTE | 2019-04-28 19:58 | P.CNNES ---
History of Present Illness Consult date: 04/28/19 Reason for Consult: Dizziness Chief complaint: AMS History of Present Illness: HISTORY OF PRESENT ILLNESS: Thank you for allowing me to evaluate Mr. Wicho Celis. Mr. Celis is a 78-year-old man with past medical history of Parkinson's disease, hypertension and hyperlipidemia, who presented to [facility] for altered mental status. at the time stated that patient had an appoint ment in his neurologist's office (Dr. Walker). On his way to the appointment, patient became confused with slurred speech, and at the clinic patient was noted to have a blood pressure of 72/43. stated that patient has had previous episodes similar to this last year. Occurs about 3 times per week. They will last anywhere from 20 minutes to several hours. Previously, the neurologist had that there may be concerns about TIAs. Patient states that in the past month, he's had about 4 similar episodes. was not at bedside but she had left a note asking about whether patient could be overmedicated with Sinemet and Stilevo and also if there's anything that can be done about the weakness and dizziness. PAST MEDICAL HISTORY: Parkinson's disease, hypertension and hyperlipidemia PAST SURGICAL HISTORY: Back surgery, shunt HOME MEDICATIONS: Plavix, Mirabegron, docusate, lisinopril, aspirin, atorvastatin, stalevo, levothyroxine, Sinemet ALLERGIES: Morphine SOCIAL HISTORY: Never smoker. Endorses marijuana use REVIEW OF SYSTEMS: The 14 systems are reviewed and no additional points are identified compared to the review of systems documented history and physical PHYSICAL EXAMINATION: VITAL SIGNS: T 98.5 HR 72 RR 18 BP 176/84 O2 sat 96% on RA GEN.: NAD, pleasant and cooperative HEENT: NCAT, sclera without icterus NECK: Supple SKIN AND EXTREMITIES: Warm to touch, no edema NEURO: MENTAL STATUS: Patient alert and oriented to self, place, time. Able to name the current president. Speech fluent, able to name and repeat, following all commands readily. No right and left disorientation, neglect. CRANIAL NERVES II THROUGH XII: II: Pupils are equal and reactive to light symmetrically. No afferent pupillary defect. Visual vu are intact. III, IV, : No ptosis. Extraocular movements full. No nystagmus. V: Facial sensation intact from V1-3. VII. No clear facial asymmetry. VIII: Hearing intact to finger rub bilaterally but with some hearing difficultyIX, X: Symmetric palate elevation. XI: Shoulder shrug intact. XII: Tongue midline without fasciculation or atrophy. MOTOR: Increased tone in RUE and RLE. No pronator drift or tremor. Strength is 5/5 throughout all 4 extremities. SENSORY: Intact to light touch in all 4 extremities. REFLEXES: 2+ in b/l UE. mute in b/l LE. Toes are downgoing. COORDINATION: Finger to nose intact. No dysmetria. GAIT: Patient able to walk on his own without cane or walker. Decreased swinging with his RUE. Slow gait, stooped. DIAGNOSTIC TESTING: LABORATORY: WBC 6.9 Hgb 11.6 Platelet 271 Na 143 K 4.7 Cl 113 CO2 28 BUN 20 Cr 1.08 Glucose 101 AST 18 ALT 11 AlkPhos 63 Total Cholesterol 135 HDL 24 LDL 81 TG 150 TSH 0.050 fT4 1.36 IMAGING: CT head without contrast 04/27/2019: Age-related atrophic and chronic small vessel ischemic changes without acute intracranial process seen at this time. TTE : SR. LV, LA, RV, RA sizes are normal. EF 60-65%. Interatrial and interventricular septum intact. EKG: Normal SR ASSESSMENT: 78-year-old man with past medical history of Parkinson's disease, hypertension and hyperlipidemia, who presented to [facility] for altered mental status. Patient's description of the episodes have been recurrent, doesn't last very long. Patient states he become stiff and confused. When patient's vitals were initially evaluated, patient was noted to have low blood pressure. Suspicious etiology of these episodes is low blood pressure, but patient with hx of Parkinson's disease that was diagnosed in 2017 and patient with low BP (multiple system atrophy patients would have orthostatic hypotension). Patient with no difficulties looking up or down, which PSP patients could have. Patient's disease progression of Parkinson's disease has been quite fast and MSP is on the differential. Transient global amnesia RECOMMENDATIONS: 1. MRI brain without contrast 2. Carotid Doppler 3. Transthoracic echocardiogram 4. ASA 81mg qday and Plavix 75mg qday (dual antiplatelet therapy for 3 weeks p er POINT trial, then Aspirin 81mg qday only) 5. Atorvastatin 80mg qhs 6. Labs: A1C 7. PT/OT/ST per protocol 8. Orthostatic check 9. Neurology will continue to follow 10. Patient needs to follow up with neurologist as outpatient with her 1-2 weeks of discharge, preferably movement disorder specialist Past Medical History Past Medical History: Hyperlipidemia, Hypertension Additional Past Medical History / Comment(s): parkinson, pt is a&o x3 but dont sure about history History of Any Multi-Drug Resistant Organisms: None Reported Past Surgical History: Back Surgery, Orthopedic Surgery Additional Past Surgical History / Comment(s): shunt in the head for the arnold placed in [place], [place] at [facility] Past Anesthesia/Blood Transfusion Reactions: No Reported Reaction Past Psychological History: No Psychological Hx Reported Smoking Status: Never smoker Past Alcohol Use History: None Reported Past Drug Use History: Marijuana - Past Family History Brother(s) Additional Family Medical History / Comment(s): exposed to agent orgnae Father History Unknown: Yes Mother Additional Family Medical History / Comment(s): passed in 2014 of old age at 95 Medications and Allergies Home Medications Medication Instructions Recorded Confirmed Type Aspirin [Adult Low Dose Aspirin EC] 81 mg PO DAILY 04/27/19 04/27/19 History Atorvastatin [Lipitor] 20 mg PO HS 04/27/19 04/27/19 History Carbidopa/Levodopa [Sinemet CR 1 tab PO QID 04/27/19 04/27/19 History 50-200 mg] Carbidopa/Levodopa/Entacapone 1 tab PO QID 04/27/19 04/27/19 History [Stalevo 200] Clopidogrel Bisulfate [Plavix] 75 mg PO HS 04/27/19 04/27/19 History Docusate [Colace] 100 mg PO DAILY@1800 04/27/19 04/27/19 History Docusate [Colace] 200 mg PO QAM 04/27/19 04/27/19 History Lactobacillus Rhamnosus GG 1 cap PO DAILY@1400 04/27/19 04/27/19 History [Culturelle] Levothyroxine Sodium [Synthroid] 125 mcg PO DAILY 04/27/19 04/27/19 History Lisinopril [Zestril] 2.5 mg PO DAILY 04/27/19 04/27/19 History Mirabegron [Myrbetriq] 50 mg PO HS 04/27/19 04/27/19 History Rivastigmine 4.6MG/24Hr Patch 1 patch TRANSDERM Q24HR 04/28/19 04/28/19 History [Exelon 4.6MG/24Hr Patch] Allergies Allergy/AdvReac Type Severity Reaction Status Date / Time morphine Allergy Hallucinati Verified 04/27/19 15:43 ons Physical Examination - Vital Signs Vital Signs: Vital Signs Temp Pulse Pulse Resp BP BP Pulse Ox 04/28/19 04:00 98.5 F 72 18 176/84 96 04/27/19 22:11 97.2 F L 76 17 150/73 97 04/27/19 20:00 98.3 F 76 18 174/74 97 04/27/19 18:32 98.0 F 73 18 163/73 96 04/27/19 16:52 80 16 132/76 99 04/27/19 15:41 98.0 F 76 16 169/84 99 04/27/19 14:31 71 16 175/83 97 04/27/19 12:35 97.3 F L 70 16 119/74 99 Intake and Output 04/27/19 04/28/19 04/28/19 22:59 06:59 14:59 Other: Voiding Method Urinal Urinal Weight 91.172 kg 88.8 kg Results - Laboratory Findings CBC and BMP: 04/28/19 06:15 04/28/19 06:15 Abnormal Lab Findings: Abnormal Labs 04/27/19 04/27/19 04/27/19 12:45 12:45 12:45 RBC 3.84 L Hgb 11.8 L Hct 36.0 L Neutrophils # 8.0 H APTT 21.1 L Chloride 114 H Glucose 126 H POC Glucose (mg/dL) Calcium 10.4 H ALT 11 L Total Protein 6.2 L 04/27/19 04/28/19 12:54 06:15 RBC 3.69 L Hgb 11.6 L Hct 34.5 L Neutrophils # APTT Chloride Glucose POC Glucose (mg/dL) 152 H Calcium ALT Total Protein
[2019-04-28] MEDS: CLOPIDOGREL 75 MG TAB PO SCH (21:21)
[2019-04-28] MEDS: MYRBETRIQ 50 MG PO SCH (21:21)
[2019-04-28] MEDS: ATORVASTATIN 20 MG TAB PO SCH (21:21)
[2019-04-28 21:25] VITALS: RESP 16
[2019-04-29] MEDS: LEVOTHYROXINE 125 MCG TAB PO SCH (06:25)
[2019-04-29 06:43] LABS: Basophils # (A) 0.1 k/uL (0-0.2); Basophils % (A) 1 %; Eosinophils # (A) 0.3 k/uL (0-0.7); Eosinophils % (A) 4 %; HCT 33.3 % (39.0-53.0); HGB 11.2 gm/dL (13.0-17.5); Lymphocytes # (A) 1.2 k/uL (1.0-4.8); Lymphocytes % (A) 19 %; MCH 31.3 pg (25.0-35.0); MCHC 33.7 g/dL (31.0-37.0); MCV 92.8 fL (80.0-100.0); Mean Platelet Volume 7.4; Monocytes # (A) 0.6 k/uL (0-1.0); Monocytes % (A) 9 %; Neutrophils # (A) 4.1 k/uL (1.3-7.7); Neutrophils % (A) 65 %; Platelet Count 251 k/uL (150-450); RBC 3.59 m/uL (4.30-5.90); RDW 12.8 % (11.5-15.5); WBC 6.4 k/uL (3.8-10.6)
--- NOTE | 2019-04-29 08:35 | P.HPIM ---
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 While pt was ambulating in the waiting room he became dizzy, room spnning, and fell. He did not hit his head or lose consciousness. His BP was 70s/40s and blood glucose 190. He states that he has been having frequent falls over the past few months and becoming easily dizzy when he moves from seated to standing position. He is on sinemet qid and rivastigmine patch, feels his PD symptoms are overall stable. He does report falling at home 4-5 times in the past month mostly when he first starts moving. In the ED pt hypertensive, labs remarkable only for Hgb 11.[address] head without acute process. Review of Systems All systems: negative Constitutional: Reports as per HPI, Denies chills, Denies fever Eyes: denies blurred vision, denies pain Ears, nose, mouth and throat: Denies headache, Denies sore throat Cardiovascular: Denies chest pain, Denies shortness of breath Respiratory: Denies cough Gastrointestinal: Denies abdominal pain, Denies diarrhea, Denies nausea, Denies vomiting Musculoskeletal: Denies myalgias Integumentary: Denies pruritus, Denies rash Neurological: Reports as per HPI, Reports ataxia, Reports balance difficulties, Reports motor disturbance, Reports spasticity, Reports transient paralysis, Reports weakness, Denies numbness Psychiatric: Denies anxiety, Denies depression Endocrine: Denies fatigue, Denies weight change Past Medical History Past Medical History: Hyperlipidemia, Hypertension Additional Past Medical History / Comment(s): parkinson, pt is a&o x3 but dont sure about history History of Any Multi-Drug Resistant Organisms: None Reported Past Surgical History: Back Surgery, Orthopedic Surgery Additional Past Surgical History / Comment(s): shunt in the head for the arnold placed in [place] at [facility] Past Anesthesia/Blood Transfusion Reactions: No Reported Reaction Past Psychological History: No Psychological Hx Reported Smoking Status: Never smoker Past Alcohol Use History: None Reported Past Drug Use History: Marijuana - Past Family History Brother(s) Additional Family Medical History / Comment(s): exposed to agent orgnae Father History Unknown: Yes Mother Additional Family Medical History / Comment(s): passed in 2014 of old age at 95 Medications and Allergies Home Medications Medication Instructions Recorded Confirmed Type Aspirin [Adult Low Dose Aspirin EC] 81 mg PO DAILY 04/27/19 04/27/19 History Atorvastatin [Lipitor] 20 mg PO HS 04/27/19 04/27/19 History Carbidopa/Levodopa [Sinemet CR 1 tab PO QID 04/27/19 04/27/19 History 50-200 mg] Carbidopa/Levodopa/Entacapone 1 tab PO QID 04/27/19 04/27/19 History [Stalevo 200] Clopidogrel Bisulfate [Plavix] 75 mg PO HS 04/27/19 04/27/19 History Docusate [Colace] 100 mg PO DAILY@1800 04/27/19 04/27/19 History Docusate [Colace] 200 mg PO QAM 04/27/19 04/27/19 History Lactobacillus Rhamnosus GG 1 cap PO DAILY@1400 04/27/19 04/27/19 History [Culturelle] Levothyroxine Sodium [Synthroid] 125 mcg PO DAILY 04/27/19 04/27/19 History Lisinopril [Zestril] 2.5 mg PO DAILY 04/27/19 04/27/19 History Mirabegron [Myrbetriq] 50 mg PO HS 04/27/19 04/27/19 History Rivastigmine 4.6MG/24Hr Patch 1 patch TRANSDERM Q24HR 04/28/19 04/28/19 History [Exelon 4.6MG/24Hr Patch] Allergies Allergy/AdvReac Type Severity Reaction Status Date / Time morphine Allergy Hallucinati Verified 04/27/19 15:43 ons Physical Exam Vitals: Vital Signs Temp Pulse Pulse Resp BP BP BP 04/29/19 03:29 73 16 171/77 04/28/19 23:30 78 16 129/64 04/28/19 20:00 76 16 164/87 04/28/19 15:21 98.3 F 74 18 04/28/19 11:27 97.6 F 04/28/19 11:00 78 85 18 124/60 139/65 BP BP Pulse Ox 04/29/19 03:29 98 04/28/19 23:30 96 04/28/19 20:00 99 04/28/19 15:21 165/75 97 04/28/19 11:27 04/28/19 11:00 159/72 92 L Intake and Output 04/28/19 04/29/19 04/29/19 22:59 06:59 14:59 Intake Total 222 240 Balance 222 240 Intake: Oral 222 240 Other: # Voids 1 1 Weight 89.3 kg General: well nourished, well developed, NAD. Vitals reviewed Eyes: PERRL, EOMI, conjunctiva normal HENT: normocephalic, mucus membranes moist Neck: supple, no JVD Lungs: normal respiratory effort, no wheezes or rales CV: Regular rate and rhythm, systolic murmur. Peripheral pulses 2+ Abdomen: soft, nondistended, no organomegaly Lymph: no cervical or axillary LAD Skin: warm and dry. Neuro: A&Ox3, normal mood and affect. Increased muscle tone. No spasticity, no cogwheeling Results CBC & Chem 7: 04/29/19 05:42 04/29/19 05:42 Labs: Abnormal Lab Results - Last 24 Hours (Table) 04/28/19 04/29/19 04/29/19 Range/Units 06:15 05:42 05:42 RBC 3.59 L (4.30-5.90) m/uL Hgb 11.2 L (13.0-17.5) gm/dL Hct 33.3 L (39.0-53.0) % Chloride 112 H (98-107) mmol/L Glucose 101 H (74-99) mg/dL Triglycerides 150 H (<150) mg/dL HDL Cholesterol 24 L (40-60) mg/dL TSH 0.050 L (0.465-4.680) mIU/L Thrombosis Risk Factor Assmnt - Choose All That Apply Any of the Below Risk Factors Present?: Yes Each Factor Represents 1 point: Obesity (BMI >25), Swollen legs (current) Other Risk Factors: Yes Each Risk Factor Represents 3 Points: Age 75 years or older Other congenital or acquired thrombophilia - If yes, enter type in comment: No Thrombosis Risk Factor Assessment Total Risk Factor Score: 5 Thrombosis Risk Factor Assessment Level: High Risk Assessment and Plan (1) Parkinson disease Current Visit: Yes Status: Acute Code(s): G20 - PARKINSON'S DISEASE SNOMED Code(s): 27716166 (2) 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40 - ENCEPHALOPATHY, UNSPECIFIED SNOMED Code(s): 99111373 Plan: 1. AMS, presyncope. Suspect represents orthostatic hypotension secondary to PD. Cardiology and Neurology consults. Echocardiogram in progress, consider tilt table test. Continue sinemet and rivastigmine 2. HTN. Continue lisinopril 2.5 mg qd 3. HLD. Continue lipitor
[2019-04-29] MEDS: LISINOPRIL 2.5 MG TAB PO SCH (08:45)
[2019-04-29] MEDS: DOCUSATE 100 MG CAP PO SCH ×2 (08:45→18:17)
[2019-04-29] MEDS: RIVASTIGMINE 4.6MG/24HR PATCH TRANSDERM SCH (08:45)
[2019-04-29] MEDS: ACETAMINOPHEN TAB 325 MG TAB PO PRN (08:45)
[2019-04-29] MEDS: ASPIRIN 81 MG PO SCH (08:45)
[2019-04-29] MEDS: STALEVO PO SCH ×2 (08:46→13:11)
[2019-04-29] MEDS: CARBIDOPA-LEVODOPA ER 50-200MG 1 EACH TABLET.ER PO SCH ×4 (08:46→20:37)
[2019-04-29] MEDS ORDERED: LISINOPRIL 2.5 MG TAB PO STA (09:33)
--- NOTE | 2019-04-29 10:11 | P.PN ---
Subjective Progress Note Date: 04/29/19 This is a pleasant 78-year-old gentleman with documented history of hypertension although his states that his blood pressure is been quite labile, hyperlipidemia, hypothyroidism, Parkinson's, with history of brain shunt. He was at his primary care doctor's office yesterday, became quite pale in color, was very dizzy, blood pressure at that time was documented to be around 70 systolic. Blood sugar in the range of 190 at that time. At that time the patient did also have some slurring of speech which she also appears to get on these occasions according to the . He denies any chest pain, palpitations, or shortness of breath. Apparently the patient has been having these episodes over the past few months, he had a Holter monitor proximally a month ago for that reason which according to the has been reported to be normal. The patient does state that when she gets up from a sitting to standing position he becomes very dizzy and feels like he may pass out at times. CAT s can of the brain showed age-related atrophic and chronic small vessel ischemic change without any acute intracranial process. The patient's blood pressure on arrival here was 120/70 with a heart rate of 70, 99% on room air. Blood pressure this morning 176/84 with a heart rate in the 70s. Afebrile. 96% on room air. White blood cell count is normal, hemoglobin 11.6, platelet count 271. Sodium 143, potassium 4.7, BUN 20, creatinine 1.0. Troponin is negative. 04/29/2018 Patient was seen and examined this morning, denies any dizziness or lightheadedness. No documented orthostatic so far here. Patient's blood pressure is actually running on the high side. Blood pressure 192/70. Echo revealed an ejection fraction of 60-65%. White blood cell count 6.4, hemoglobin 11.2, platelet count 251. Sodium 143, potassium 4.0, BUN 20 and creatinine 0.9. Objective - Vital Signs Vital signs: Vital Signs Temp 98.5 F 04/29/19 08:30 Pulse 71 04/29/19 08:30 Resp 16 04/29/19 08:30 BP 175/77 04/29/19 08:30 Pulse Ox 97 04/29/19 08:30 Intake & Output 04/28/19 04/29/19 04/29/19 18:59 06:59 18:59 Intake Total 340 240 Output Total 300 Balance 40 240 Weight 89.3 kg Intake: Oral 340 240 Output: Urine 300 Other: Voiding Method Toilet Urinal # Voids 3 1 - Exam PHYSICAL EXAMINATION: GENERAL: 78-year-old gentleman in no acute distress at the time of my examination HEENT: Head is atraumatic, normocephalic. Pupils equal, round. Sclera anicteric. Conjunctiva are clear. Mucous membranes of the mouth are moist. Neck is supple. There is no elevated jugular venous pressure. No carotid bruit is heard. HEART EXAMINATION: Heart S1, S2 normal. No murmur or gallop heard. CHEST EXAMINATION: Lungs are clear to auscultation and precussion. No chest wall tenderness is noted on palpation or with deep breathing. ABDOMEN: Soft, nontender. Bowel sounds are heard. No organomegaly noted. EXTREMITIES: 2+ peripheral pulses with no evidence of peripheral edema and no calf tenderness noted. NEUROLOGIC patient is awake, alert and oriented 3 . - Labs CBC & Chem 7: 04/29/19 05:42 04/29/19 05:42 Labs: Abnormal Lab Results - Last 24 Hours (Table) 04/28/19 04/29/19 04/29/19 Range/Units 06:15 05:42 05:42 RBC 3.59 L (4.30-5.90) m/uL Hgb 11.2 L (13.0-17.5) gm/dL Hct 33.3 L (39.0-53.0) % Chloride 112 H (98-107) mmol/L Glucose 101 H (74-99) mg/dL Triglycerides 150 H (<150) mg/dL HDL Cholesterol 24 L (40-60) mg/dL TSH 0.050 L (0.465-4.680) mIU/L Assessment and Plan Plan: Assessment and plan #1 symptoms of dizziness, slurring of speech, near syncope. Likely secondary to orthostatic hypotension, rule out other cardiac causes, rule out possible TIA #2 Parkinson's with history of brain shunt #3 hypotension #4 history of hypertension #5 hypothyroidism #6 hyperlipidemia Plan Echocardiogram with Doppler study was performed which revealed a normal left ventricular systolic function. Perspective, we'll continue this patient on his current medications. DNP note has been reviewed, I agree with a documented findings and plan of care. Patient was seen and examined.
[2019-04-29] MEDS: METOPROLOL TARTRATE 25 MG TAB PO SCH (11:42)
--- NOTE | 2019-04-29 13:36 | P.PN ---
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 While pt was ambulating in the waiting room he became dizzy, room spnning, and fell. He did not hit his head or lose consciousness. His BP was 70s/40s and blood glucose 190. He states that he has been having frequent falls over the past few months and becoming easily dizzy when he moves from seated to standing position. He is on sinemet qid and rivastigmine patch, feels his PD symptoms are overall stable. He does report falling at home 4-5 times in the past month mostly when he first starts moving. In the ED pt hypertensive, labs remarkable only for Hgb 11.[address] head without acute process. 04/29/2019 continues on Sinemet and rivastigmine. negative for orthostatic hypotension. Labile blood pressures. Patient states he had not had anything to eat that morning prior to going to Dr. Walker's office-(with a reported systolic blood pressure in the 70's); suspect less BP reserve secondary to Parkinson's disease. Hypertensive this morning, systolic blood pressures in the 190s, accompanied by headache. CT reported no expansion of the ventricles, patient has regular monitoring of shunt with Dr. Walker's office. Denies chest pain, palpitations or shortness of breath. Denies lightheadedness, dizziness or focal deficits.Evaluated by cardiology and neurology with recommendations noted. Echocardiogram reporting normal LV function, EF 60-65%, aortic root dilated 4.2 cm Objective - Vital Signs Vital signs: Vital Signs Temp 98.5 F 04/29/19 08:30 Pulse 71 04/29/19 08:30 Resp 16 04/29/19 08:30 BP 175/77 04/29/19 08:30 Pulse Ox 97 04/29/19 08:30 Intake & Output 04/28/19 04/29/19 04/29/19 18:59 06:59 18:59 Intake Total 340 240 Output Total 300 Balance 40 240 Weight 89.3 kg Intake: Oral 340 240 Output: Urine 300 Other: Voiding Method Toilet Urinal # Voids 3 1 - Exam General: Sitting up in bed, no acute distress Eyes: PERRL, EOMI, conjunctiva normal. HENT: normocephalic, mucus membranes moist Neck: supple, no JVD. Lungs: normal respiratory effort, no rhonchi, no wheezes or rales CV: Regular rate and rhythm, systolic murmur. Peripheral pulses 2+ Abdomen: soft, nondistended, no organomegaly Lymph: no cervical or axillary LAD Skin: warm and dry. Neuro: A&Ox3, normal mood and affect. Increased muscle tone. No spasticity, no cogwheeling - Labs CBC & Chem 7: 04/29/19 05:42 04/29/19 05:42 Labs: Abnormal Lab Results - Last 24 Hours (Table) 04/28/19 04/29/19 04/29/19 Range/Units 06:15 05:42 05:42 RBC 3.59 L (4.30-5.90) m/uL Hgb 11.2 L (13.0-17.5) gm/dL Hct 33.3 L (39.0-53.0) % Chloride 112 H (98-107) mmol/L Glucose 101 H (74-99) mg/dL Triglycerides 150 H (<150) mg/dL HDL Cholesterol 24 L (40-60) mg/dL TSH 0.050 L (0.465-4.680) mIU/L Assessment and Plan Assessment: (1) Parkinson disease, history of brain shunt Current Visit: Yes Status: Acute Code(s): G20 - PARKINSON'S DISEASE SNOMED Code(s): 50659380 (2) 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 Current Visit: Yes Status: Acute Code(s): G90.3 - MULTI-SYSTEM DEGENERATION OF THE AUTONOMIC NERVOUS SYSTEM SNOMED Code(s): 445593597 (3) Autonomic dysfunction Current Visit: Yes Status: Acute Code(s): G90.9 - DISORDER OF THE AUTONOMIC NERVOUS SYSTEM, UNSPECIFIED SNOMED Code(s): 69135637 (4) Hypertension Current Visit: Yes Status: Acute Code(s): I10 - ESSENTIAL (PRIMARY) HYPERTENSION SNOMED Code(s): 57729082 (5) Hyperlipidemia Current Visit: Yes Status: Acute Code(s): E78.5 - HYPERLIPIDEMIA, U NSPECIFIED SNOMED Code(s): 99793602 (6) Encephalopathy Current Visit: Yes Status: Acute Code(s): G93.40 - ENCEPHALOPATHY, UNSPECIFIED SNOMED Code(s): 67556483 (7) Dilated aortic root, 4.2 cm Plan: Continue on current medication regime , statin,monitoring and symptomatic treatment. ContinueSinemet, Rivastigmine. Increase lisinopril to 5 mg with close monitoring of blood pressure. Patient complains of generalized leg weakness -discussed with patient and spouse to discuss long-acting Sinemet such as Rytary with Dr. Walker, neurologist. EKG completed, results pending. Today we'll focus on blood pressure control, with discharge plans for a.m.. At Home recommend maintain blood pressure journal. The impression and plan of care has been dictated as directed. : I performed a history and examination of this patient, discussed the same with the dictator. I agree with the dictator's note ,documented as a scribe. Any additional findings or plans will be noted.
--- NOTE | 2019-04-29 14:13 | P.PN ---
Progress Note - Text Progress Note Date: 04/29/19 SUBJECTIVE/INTERVAL EVENTS: No acute overnight events. Patient having lunch. Patient with no complaints. Able to walk with no difficulty to and from the bathroom and down the hallway. PHYSICAL EXAMINATION: VITAL SIGNS: T 98.3 HR 68 RR 16 BP 196/84 O2 sat 97% on RA GEN.: NAD, pleasant and cooperative HEENT: NCAT, sclera without icterus NECK: Supple SKIN AND EXTREMITIES: Warm to touch, no edema NEURO: MENTAL STATUS: Patient alert and oriented to self, place, time. Able to name the current president. Speech fluent, able to name and repeat, following all commands readily. No right and left disorientation, neglect. CRANIAL NERVES II THROUGH XII: II: Pupils are equal and reactive to light symmetrically. No afferent pupillary defect. Visual vu are intact. III, IV, : No ptosis. Extraocular movements full. No nystagmus. V: Facial sen sation intact from V1-3. VII. No clear facial asymmetry. VIII: Hearing intact to finger rub bilaterally but with some hearing difficultyIX, X: Symmetric palate elevation. XI: Shoulder shrug intact. XII: Tongue midline without fasciculation or atrophy. MOTOR: Increased tone in RUE and RLE. No pronator drift or tremor. Strength is 5/5 throughout all 4 extremities. SENSORY: Intact to light touch in all 4 extremities. REFLEXES: 2+ in b/l UE. mute in b/l LE. Toes are downgoing. COORDINATION: Finger to nose intact. No dysmetria. GAIT: Patient able to walk on his own without cane or walker. Decreased swinging with his RUE. Slow gait, stooped. DIAGNOSTIC TESTING: LABORATORY: WBC 6.9 Hgb 11.6 Platelet 271 Na 143 K 4.7 Cl 113 CO2 28 BUN 20 Cr 1.08 Glucose 101 AST 18 ALT 11 AlkPhos 63 Total Cholesterol 135 HDL 24 LDL 81 TG 150 TSH 0.050 fT4 1.36 A1C 5.5 IMAGING: CT head without contrast 04/27/2019: Age-related atrophic and chronic small vessel ischemic changes without acute intracranial process seen at this time. TTE 04/28/19: SR. LV, LA, RV, RA sizes are normal. EF 60-65%. Interatrial and interventricular septum intact. EKG: Normal SR ASSESSMENT: 78-year-old man with past medical history of Parkinson's disease, hypertension and hyperlipidemia, hypothyroidism who presented to [facility] for altered mental status. Patient's description of the episodes have been recurrent, doesn't last very long. Patient states he become stiff and confused. When patient's vitals were initially evaluated, patient was noted to have low blood pressure. Suspicious etiology of these episodes is low blood pressure, but patient with hx of Parkinson's disease that was diagnosed in 2017 and patient with low BP (multiple system atrophy patients would have orthostatic hypotension). Patient with no difficulties looking up or down, which PSP patients could have. Patient's disease progression of Parkinson's disease has been quite fast and MSP is on the differential. Transient global amnesia. Spoke to , Fe, who states that patient with a shunt placed in 03/2018 for "fluid in his brain." MRI brain was done last month, and the result has not been provided to the yet. Patient's neurologist is Dr. Walker. PD medication dose has not been changed in a while. Spoke to CECELIA Melgar at Dr. Walker's office, MRI brain 01/2019: Ventricles moderately enlarged, age-related atrophy. Demyelination and remote deep white matter insult. Small ischemic changes. RECOMMENDATIONS: 1. c/w ASA 81mg qday 2. Atorvastatin 20mg qhs 3. Continue current Parkinson's disease Sinemet 50-200 1 tab QID 4. Decrease Stalevo 200 1 tab TID from QID 5. PT/OT/ST per protocol 6. Orthostatic negative 7. Neurology will sign off at this time. Please feel free to contact Neurology again if with additional questions or concerns. 8. Patient needs to follow up with neurologist as outpatient with her 1-2 weeks of discharge, preferably movement disorder specialist. Patient with appt with Dr. Walker on 05/04/19.
--- NOTE | 2019-04-29 14:56 | US ---
EXAMINATION TYPE: US carotid duplex BILAT DATE OF EXAM: 04/29/2019 COMPARISON: NONE CLINICAL HISTORY: TIA. TIA, exam done portable. EXAM MEASUREMENTS: RIGHT: Peak Systolic Velocity (PSV) cm/sec ----- Right CCA: 69.4 ----- Right ICA: 82.4 ----- Right ECA: 100.1 ICA/CCA ratio: 1.2 RIGHT: End Diastole cm/sec ----- Right CCA: 14.5 ----- Right ICA: 15.7 ----- Right ECA: 4.8 LEFT: Peak Systolic Velocity (PSV) cm/sec ----- Left CCA: 83.1 ----- Left ICA: 141.9 ----- Left ECA: 91.2 ICA/CCA ratio: 1.7 LEFT: End Diastole cm/sec ----- Left CCA: 11.7 ----- Left ICA: 51.5 ----- Left ECA: 0.0 VERTEBRALS (direction of flow): Right Vertebral: Antegrade Left Vertebral: Antegrade Rhythm: Normal Bilateral intimal thickening, plaque bilateral bulb, elevated velocities: left prox mid and distal IC A, no significant stenosis. Grayscale, color Doppler, spectral Doppler imaging performed the carotid arteries. Atheromatous ball es are present at the carotid bulbs. Waveform analysis does show some mild elevation of velocities in the proximal internal carotid artery on the left, ICA to CCA ratio is not elevated however.. IMPRESSION: Borderline velocity increases in the proximal left internal carotid artery without elevat ion in the ICA to CCA ratio. No definite hemodynamic significant stenosis of the internal carotid art eries by Doppler criteria, carotid CTA could be performed for increased sensitivity and specificity.
[2019-04-29 17:03] LABS: Glucose,Whole Blood 157 mg/dL (75-99)
[2019-04-29] MEDS: LACTOBACILLUS ACIDOPH & BULGAR 1 EACH PACKET PO SCH (18:17)
[2019-04-29] MEDS: ATORVASTATIN 20 MG TAB PO SCH (20:37)
[2019-04-29] MEDS: MYRBETRIQ 50 MG PO SCH (20:38)
[2019-04-29] MEDS ORDERED: LISINOPRIL 5 MG TAB PO STA (20:53)
[2019-04-29] MEDS ORDERED: STALEVO PO SCH (22:00)
[2019-04-30] MEDS: LEVOTHYROXINE 125 MCG TAB PO SCH (05:50)
[2019-04-30] MEDS: ASPIRIN 81 MG PO SCH (08:00)
[2019-04-30] MEDS: RIVASTIGMINE 4.6MG/24HR PATCH TRANSDERM SCH (08:00)
[2019-04-30] MEDS: DOCUSATE 100 MG CAP PO SCH (08:01)
[2019-04-30] MEDS: CARBIDOPA-LEVODOPA ER 50-200MG 1 EACH TABLET.ER PO SCH (08:01)
[2019-04-30] MEDS: METOPROLOL TARTRATE 25 MG TAB PO SCH (08:01)
[2019-04-30] MEDS ORDERED: LISINOPRIL 5 MG TAB PO SCH (09:00)
[2019-04-30 10:09] VITALS: BP 169/73; PULSE 59; TEMP 98.2
[2019-04-30] MEDS ORDERED: LISINOPRIL 5 MG TAB PO STA (10:29)
--- NOTE | 2019-04-30 12:29 | PN ---
PROGRESS NOTE This is a 78-year-old gentleman who was admitted to hospital with orthostatic hypotension, has Parkinson disease and multiple other medical problems including hypertension, dyslipidemia, hypothyroidism. This morning patient is feeling better. He no longer has hypotension and, in fact, has had somewhat of a poorly controlled blood pressure. He is on lisinopril and metoprolol. I am increasing the dose of lisinopril to 10 mg daily. An echocardiogram showed normal function. EXAM: Patient is comfortable at rest. Blood pressure is 169/73, respiratory rate is 18. Chest exam reveals good air entry bilaterally. Heart exam reveals first and second heart sounds. No gallop. No murmur. Abdomen is soft. Exam of extremities did not reveal any edema. Peripheral pulses are felt. LABS: There are no labs from today. ASSESSMENT: 1. Orthostatic hypotension, improved. 2. Uncontrolled hypertension. PLAN: I will adjust the medication. From cardiac standpoint he is stable for discharge. MMODL / IJN: [id number] /
--- NOTE | 2019-04-30 13:19 | P.DS ---
Providers Date of admission: 04/29/19 13:11 Attending physician: Sathish Jc MD Consults: 04/27/19 15:25 Consult Physician Urgent Consulting Provider: Sue Rueda Consult Reason/Comments: recurrent transient encephalopathy, dysarthria, dysphagia, possible TIA Do you want consulting provider notified?: Yes 04/27/19 15:26 Consult Physician Urgent Consulting Provider: [facility] Consult Reason/Comments: acute hypotension Do you want consulting provider notified?: Yes Primary care physician: Staci Jc Hospital Course: 78 yo M with PMH of parkinson disease with RACK CLEANER shunt in place, HTN, HLD who presented to the ED after an presyncopal episode in his neurologist office. While pt was ambulating in the waiting room he became dizzy, room spnning, and fell. He did not hit his head or lose consciousness. His BP was 70s/40s and blood glucose 190. He states that he has been having frequent falls over the past few months and becoming easily dizzy when he moves from seated to standing position. He is on sinemet qid and rivastigmine patch, feels his PD symptoms are overall stable. He does report falling at home 4-5 times in the past month mostly when he first starts moving. In the ED pt hypertensive, labs remarkable only for Hgb 11.[address] head without acute process. 04/29/2019 continues on Sinemet and rivastigmine. negative for orthostatic hypotension. Labile blood pressures. Patient states he had not had anything to eat that morning prior to going to Dr. Walker's office-(with a reported systolic blood pressure in the 70's); suspect less BP reserve secondary to Parkinson's disease. Hypertensive this morning, systolic blood pressures in the 190s, accompanied by headache. CT reported no expansion of the ventricles, patient has regular monitoring of shunt with Dr. Walker's office. Denies chest pain, palpitations or shortness of breath. Denies lightheadedness, dizziness or focal deficits.Evaluated by cardiology and neurology with recommendations noted. Echocardiogram reporting normal LV function, EF 60-65%, aortic root dilated 4.2 cm 04/30/2019 Patient is clinically doing well blood pressure is bit better after increasing the dose of lisinopril and the patient will be discharged today decrease the dose of Sinemet as recommended by neurology. Neurology cleared for discharge. PHYSICAL EXAMINATION: GENERAL: The patient is alert and oriented x3, not in any acute distress. Well developed, well nourished. HEENT: Pupils are round and equally reacting to light. EOMI. No scleral icterus. No conjunctival pallor. Normocephalic, atraumatic. No pharyngeal erythema. No thyromegaly. CARDIOVASCULAR: S1 and S2 present. No murmurs, rubs, or gallops. PULMONARY: Chest is clear to auscultation, no wheezing or crackles. ABDOMEN: Soft, nontender, nondistended, normoactive bowel sounds. No palpable organomegaly. MUSCULOSKELETAL: No joint swelling or deformity. EXTREMITIES: No cyanosis, clubbing, or pedal edema. NEUROLOGICAL: Gross neurological examination did not reveal any focal deficits. SKIN: No rashes. Other medical problems Hospital physician course please refer to dictation a progress note from yesterday. Patient Condition at Discharge: Stable Plan - Discharge Summary New Discharge Prescriptions: New Metoprolol Tartrate [Lopressor] 25 mg PO BID #60 tablet Lisinopril [Zestril] 10 mg PO DAILY #30 tab Carbidopa/Levodopa/Entacapone [Stalevo 200] 1 tab PO TID Carbidopa-Levodopa ER 50-200Mg [Sinemet CR 50-200 mg] 1 each PO QID tablet.er Continue Lactobacillus Rhamnosus GG [Culturelle] 1 cap PO DAILY@1400 Clopidogrel Bisulfate [Plavix] 75 mg PO HS Mirabegron [Myrbetriq] 50 mg PO HS Docusate [Colace] 100 mg PO DAILY@1800 Aspirin [Adult Low Dose Aspirin EC] 81 mg PO DAILY Atorvastatin [Lipitor] 20 mg PO HS Docusate [Colace] 200 mg PO QAM Levothyroxine Sodium [Synthroid] 125 mcg PO DAILY Rivastigmine 4.6MG/24Hr Patch [Exelon 4.6MG/24Hr Patch] 1 patch TRANSDERM Q24HR Discontinued Lisinopril [Zestril] 2.5 mg PO DAILY Carbidopa/Levodopa/Entacapone [Stalevo 200] 1 tab PO QID Carbidopa/Levodopa [Sinemet CR 50-200 mg] 1 tab PO QID Discharge Medication List Aspirin [Adult Low Dose Aspirin EC] 81 mg PO DAILY 04/27/19 [History] Atorvastatin [Lipitor] 20 mg PO HS 04/27/19 [History] Clopidogrel Bisulfate [Plavix] 75 mg PO HS 04/27/19 [History] Docusate [Colace] 100 mg PO DAILY@1800 04/27/19 [History] Docusate [Colace] 200 mg PO QAM 04/27/19 [History] Lactobacillus Rhamnosus GG [Culturelle] 1 cap PO DAILY@1400 04/27/19 [History] Levothyroxine Sodium [Synthroid] 125 mcg PO DAILY 04/27/19 [History] Mirabegron [Myrbetriq] 50 mg PO HS 04/27/19 [History] Rivastigmine 4.6MG/24Hr Patch [Exelon 4.6MG/24Hr Patch] 1 patch TRANSDERM Q24HR 04/28/19 [History] Carbidopa-Levodopa ER 50-200Mg [Sinemet CR 50-200 mg] 1 each PO QID tablet.er 04/30/19 [Rx] Carbidopa/Levodopa/Entacapone [Stalevo 200] 1 tab PO TID 04/30/19 [Rx] Lisinopril [Zestril] 10 mg PO DAILY #30 tab 04/30/19 [Rx] Metoprolol Tartrate [Lopressor] 25 mg PO BID #60 tablet 04/30/19 [Rx] Follow up Appointment(s)/Referral(s): Libertad Schroeder NPC [Nurse Practitioner] - 1 Week (Please follow up with your commercial carpenter within two weeks of being discharged from the hospital.) Staci Jc DO [Primary Care Provider] - 1-2 days (Please follow up with Dr. Jc early next week regarding hospital stay. Check blood pressures twice daily and keep a log to bring to appointment. ) [facility], [NON-STAFF] - Devan Walker MD [Medical Doctor] - 05/07/19 8:40 am Patient Instructions/Handouts: Transient Ischemic Attack (DC), Hypertension (DC) Discharge Disposition: HOME WITH HOME HEALTH SERVICES
== END 2019-04-30 11:48 | disposition home health service (06) ==
LOC: EC 12:32 → 3SCARD 15:27 → INTOOBSV 04-29 13:11 → OBSVTOIN 04-29 13:11 → UNDODISIN 04-30 11:48
PROVIDERS: ADMIT Family Medicine; ATTEND Family Medicine
DX: G20 Parkinson's disease (principal); I10 Essential (primary) hypertension; G93.40 Encephalopathy, unspecified; G90.9 Disorder of the autonomic nervous system, unspecified; E78.5 Hyperlipidemia, unspecified; G45.4 Transient global amnesia; I77.810 Thoracic aortic ectasia; R13.10 Dysphagia, unspecified; Z79.890 Hormone replacement therapy; E03.9 Hypothyroidism, unspecified; Z91.81 History of falling; R29.6 Repeated falls; R47.81 Slurred speech; Z79.02 Long term (current) use of antithrombotics/antiplatelets; R29.700 NIHSS score 0; Z79.82 Long term (current) use of aspirin; Z98.2 Presence of cerebrospinal fluid drainage device; Z79.899 Other long term (current) drug therapy; Z88.5 Allergy status to narcotic agent
CPT/HCPCS: 99285; 36415; 93005; 93306; 84439; 80053; 80048 ×2; 80061; 84443; 83735; 84484; 85025 ×3; 85610; 85730; 83036; 93880; 70450; G0378 ×4

== ENCOUNTER → 2019-06-09 | Outpatient (CLI) | payer MEDICARE ==
[2019-06-09 11:23] LABS: HCT 36.3 % (39.0-53.0); HGB 11.5 gm/dL (13.0-17.5); Hypochromasia Marked; MCH 28.6 pg (25.0-35.0); MCHC 31.8 g/dL (31.0-37.0); MCV 89.8 fL (80.0-100.0); Mean Platelet Volume 8.4; Platelet Count 308 k/uL (150-450); Poikilocytosis Slight; RBC 4.04 m/uL (4.30-5.90); RDW 13.2 % (11.5-15.5); WBC 7.7 k/uL (3.8-10.6)
[2019-06-09 11:40] LABS: Potassium 4.7 mmol/L (3.5-5.1)
== END | disposition home or self-care (01) ==
LOC: LABPAT 10:26
PROVIDERS: ATTEND Internal Medicine Interventional Cardiology
DX: Z01.812 Encounter for preprocedural laboratory examination (principal); E78.2 Mixed hyperlipidemia; R94.39 Abnormal result of other cardiovascular function study
CPT/HCPCS: 36415; 80051; 82565; 82947; 84520; 85027

== ENCOUNTER 2019-06-11 06:29 | Day surgery (SDC) | payer MEDICARE ==
[2019-06-08 15:40] VITALS: BMI 30.2
[~2019-06-11 06:29] MED LIST: ALPRAZolam 0.25 MG TAB PO PRN; ALPRAZolam 0.5 MG TAB PO PRN; NITROGLYCERIN SL TABS 0.4 MG TAB SUBLINGUAL PRN; SODIUM CHLORIDE 0.9% 1,000 ML in EMPTY BAG 1 BAG IV ONE
[2019-06-11] MEDS ORDERED: ATORVASTATIN 80 MG TAB PO ONE (07:00)
[2019-06-11] MEDS ORDERED: ASPIRIN 325 MG TAB PO ONE (07:00)
[2019-06-11 07:16] VITALS: RESP 16; TEMP 97.5
[2019-06-11] MEDS ORDERED: fentaNYL (PF) 50 MCG/ML 2 ML AMP IV ONE (07:45)
[2019-06-11] MEDS ORDERED: LIDOCAINE 1% INJ 10MG/ML (20 ML MDV) SQ ONE (07:47)
[2019-06-11] MEDS ORDERED: VERAPAMIL SYRINGE (5 MG/10 ML) INTRAARTER ONE (07:50)
[2019-06-11] MEDS ORDERED: NITROGLYCERIN SL TABS 0.4 MG TAB SUBLINGUAL ONE (07:54)
[2019-06-11] MEDS ORDERED: IOPAMIDOL-370 125ML BTL INJ ONE (08:05)
[2019-06-11] MEDS ORDERED: RX INFO: IV CONTRAST WAS GIVEN 1 EACH MISC MISCELLANE PRN (08:20)
[2019-06-11] MEDS ORDERED: SODIUM CHLORIDE 0.9% 1,000 ML IV SCH (08:30)
[2019-06-11 08:57] VITALS: BP 159/75; PULSE 53
[2019-06-11] MEDS ORDERED: METOPROLOL TARTRATE 25 MG TAB PO SCH (09:00)
[2019-06-11] MEDS ORDERED: DOCUSATE 100 MG CAP PO SCH ×2 (09:00→18:00)
[2019-06-11] MEDS ORDERED: ENTACAPONE PO SCH (09:00)
[2019-06-11] MEDS ORDERED: CARBIDOPA-LEVODOPA ER 50-200MG 1 EACH TABLET.ER PO SCH (09:00)
[2019-06-11] MEDS ORDERED: LISINOPRIL 10 MG TAB PO SCH (09:00)
[2019-06-11] MEDS ORDERED: RIVASTIGMINE 9.5MG/24HR PATCH TRANSDERM SCH (09:00)
[2019-06-11] MEDS ORDERED: LEVOTHYROXINE 125 MCG TAB PO SCH (09:00)
[2019-06-11] MEDS ORDERED: NON FORMULARY DRUG (Aspirin [Adult Low Dose Aspirin Ec] 81 MG) PO SCH (09:00)
[2019-06-11] MEDS ORDERED: LEVODOPA PO SCH (09:00)
[2019-06-11] MEDS ORDERED: CARBIDOPA PO SCH (09:00)
[2019-06-11] MEDS ORDERED: LACTOBACILLUS RHAMNOSUS GG PO SCH (09:00)
--- NOTE | 2019-06-11 09:41 | CC ---
CARDIAC CATHETERIZATION REPORT Mr. Celis is a 78-year-old male with a known history of hypertension and hyperlipidemia who has been complaining of episodes of dizziness. As part of his workup, he underwent myocardial perfusion imaging that revealed evidence of inducible ischemia. In view of that, recommendation was made regarding cardiac catheterization. The procedures, its risks and complications were discussed with the patient, who was in fully understanding and agreement. PROCEDURE DESCRIPTION: The patient was brought to the slab worker in a fasting, semi-sedated state after receiving fentanyl and Benadryl and achieving a moderate conscious sedated state. Using xylocaine anesthesia and Seldinger technique, a 6-Central African sheath was introduced into the right radial artery. Selective right and left coronary angiography was performed using 5-Central African, 3.5 bend, right and left Spencer catheters. Multiple views were taken of the arteries including hemiaxial views obtained. Following that, 5- [place] tight pigtail catheter was introduced in the left ventricle and a 30-degree MCCOLLUM view of the left ventricle was obtained. Following that, catheter and sheaths were removed. Hemostasis was obtained with deployment of TR band. There was no immediate complication. The patient was returned to his room in stable condition. Of note, patient received 5000 units of intravenous heparin as well as intraarterial verapamil. FINDINGS: LEFT MAIN: This is a large-sized vessel bifurcating into the left circumflex and left anterior descending artery. Left main coronary artery has no evidence of high-grade stenosis. LEFT ANTERIOR DESCENDING ARTERY: This is a large-sized vessel reaching toward the apex with a wraparound apex segment giving rise to three small diagonal branches. The left anterior descending artery, after takeoff of the first septal marketing representative, has a 20% plaque. The rest of the vessel has no high-grade stenosis. LEFT CIRCUMFLEX: This is a nondominant vessel, large in caliber giving rise to a large obtuse marginal branch. The left circumflex proximally has a 30% plaque. The rest of the vessel has no high-grade stenosis. RIGHT CORONARY ARTERY: This is a large dominant vessel bifurcating distally PDA, posterolateral segment and branches. The right coronary artery in mid segment has intimal disease at 10% to 20% without any evidence of high-grade stenosis. LEFT VENTRICULOGRAM: Left ventriculogram was performed in 30-degree MCCOLLUM view and revealed normal ventricular size and systolic function. Ejection fraction is 60%. There is no significant mitral regurgitation. HEMODYNAMICS: There was no gradient across the aortic valve. The left ventricular end-diastolic pressure was 12-16 mmHg. CONCLUSION: 1. Mild triple-vessel coronary artery disease. 2. Normal left ventricular size and systolic function. RECOMMENDATION: In view of findings and anatomy, I have recommended continued medical therapy with the aggressive coronary risk modifications that have been initiated. Those findings and recommendations were discussed with the patient and his family. They are in full understanding and agreement. Duration of procedure was 22 minutes. RODOLFO / SHERLEYN: [id number] /
--- NOTE | 2019-06-11 10:38 | LTR ---
June 11, 2019 Re: Wicho Celis Dear Dr. Jc: I had the pleasure to perform cardiac catheterization on Mr. Celis at [facility] on June 11, 2019 and a full copy of the procedure note will be forwarded to you. In brief, he was found to have mild triple-vessel coronary artery disease with preserved ventricular size and systolic function. Based on those findings, I recommend continued medical therapy with aggressive coronary risk modifications that have been initiated. Thank you again for allowing me the opportunity to participate in his care. Please feel free to call for any questions. Sincerely yours, MD RADHA AlfaroL / SHERLEYN: [id number] /
[2019-06-11] MEDS ORDERED: ATORVASTATIN 20 MG TAB PO SCH (21:00)
[2019-06-11] MEDS ORDERED: NON FORMULARY DRUG (Mirabegron [Myrbetriq] 50 MG) PO SCH (21:00)
[2019-06-11] MEDS ORDERED: CLOPIDOGREL 75 MG TAB PO SCH (21:00)
== END 2019-06-11 12:36 | disposition home or self-care (01) ==
LOC: CATHCVL 06:29
PROVIDERS: ATTEND Internal Medicine Interventional Cardiology
DX: I25.10 Atherosclerotic heart disease of native coronary artery without angina pectoris (principal); I10 Essential (primary) hypertension; E78.2 Mixed hyperlipidemia; F17.210 Nicotine dependence, cigarettes, uncomplicated; Z79.890 Hormone replacement therapy; Z79.899 Other long term (current) drug therapy; Z79.02 Long term (current) use of antithrombotics/antiplatelets; Z79.82 Long term (current) use of aspirin
CPT/HCPCS: 93458; C1769; C1894; J2001; J3010; J1644; Q9967

== ENCOUNTER 2019-06-26 11:35 | Observation (INO) | payer MEDICARE ==
[2019-06-26] MEDS ORDERED: SODIUM CHLORIDE 0.9% 1,000 ML IV STA (12:11)
[2019-06-26 12:38] LABS: Basophils # (A) 0.2 k/uL (0-0.2); Basophils % (A) 2 %; Eosinophils # (A) 0.4 k/uL (0-0.7); Eosinophils % (A) 5 %; HCT 36.3 % (39.0-53.0); HGB 11.5 gm/dL (13.0-17.5); Hypochromasia Slight; Lymphocytes % (A) 12 %; MCH 27.6 pg (25.0-35.0); MCHC 31.6 g/dL (31.0-37.0); MCV 87.4 fL (80.0-100.0); Mean Platelet Volume 8.4; Monocytes # (A) 0.6 k/uL (0-1.0); Monocytes % (A) 7 %; Neutrophils # (A) 6.4 k/uL (1.3-7.7); Neutrophils % (A) 74 %; Platelet Count 270 k/uL (150-450); RBC 4.16 m/uL (4.30-5.90); RDW 14.2 % (11.5-15.5); WBC 8.7 k/uL (3.8-10.6)
[2019-06-26 12:42] LABS: ALT <6 U/L (4-49); AST 20 U/L (17-59); African American GFR (CKD) 75 (>60 ml/min/1.73 sqM); Albumin 3.6 g/dL (3.5-5.0); Alkaline Phosphatase 58 U/L (38-126); Anion Gap 5 mmol/L; Blood Urea Nitrogen 25 mg/dL (9-20); Calcium 9.8 mg/dL (8.4-10.2); Carbon Dioxide 27 mmol/L (22-30); Chloride 110 mmol/L (98-107); Glucose 138 mg/dL (74-99); Magnesium 2.1 mg/dL (1.6-2.3); Non-African American GFR(CKD) 65 (>60 ml/min/1.73 sqM); Sodium 142 mmol/L (137-145); Total Bilirubin 0.8 mg/dL (0.2-1.3); Total Protein 6.3 g/dL (6.3-8.2)
[2019-06-26 12:52] LABS: Potassium 4.5 mmol/L (3.5-5.1)
--- NOTE | 2019-06-26 12:52 | XR ---
EXAMINATION TYPE: XR chest 2V DATE OF EXAM: 06/26/2019 COMPARISON: NONE HISTORY: Dizziness and weakness. TECHNIQUE: Frontal and lateral views of the chest are obtained. FINDINGS: There is some chronic parenchymal change without suspicious new focal air space opacity, p leural effusion, or pneumothorax seen. The cardiac silhouette size is upper limits of normal with at herosclerotic aorta. There is multilevel degenerative spurring in the spine. IMPRESSION: Chronic changes without acute pulmonary process.
[2019-06-26 12:54] LABS: INR 0.9 (<1.2); Prothrombin Time 9.8 sec (9.0-12.0)
[2019-06-26 12:56] LABS: Partial Thromboplastin Time 21.1 sec (22.0-30.0)
[2019-06-26] MEDS ORDERED: ONDANSETRON 4 MG/2 ML VIAL IVP PRN (13:20)
[2019-06-26] MEDS ORDERED: MAG HYDROX/AL HYDROX/SIMETH 30 ML CUP PO PRN (13:20)
[2019-06-26] MEDS ORDERED: NALOXONE 0.4 MG/ML 1 ML VIAL IV PRN (13:20)
[2019-06-26] MEDS ORDERED: TEMAZEPAM 15 MG CAP PO PRN (13:20)
--- NOTE | 2019-06-26 13:20 | ED ---
Dizziness HPI - General Chief Complaint: Syncope Stated Complaint: Syncope, weakness Time Seen by Provider: 06/26/19 12:11 Source: patient, EMS Mode of arrival: EMS Limitations: no limitations - History of Present Illness Initial Comments: Patient presents with lightheadedness and dizziness. He felt very weak. His family states that he passed out. He currently has no chest or belly or back pain. He has no headache. He has no nausea or vomiting. He has no diaphoresis. He has no focal weakness. He has no pain or swelling the arms or legs. He has no focal weakness. He wasn't doing anything the symptoms began. He denies any injuries. - Related Data Home Medications Medication Instructions Recorded Confirmed Aspirin [Adult Low Dose Aspirin EC] 81 mg PO DAILY 04/27/19 06/11/19 Atorvastatin [Lipitor] 20 mg PO HS 04/27/19 06/11/19 Clopidogrel Bisulfate [Plavix] 75 mg PO HS 04/27/19 06/11/19 Docusate [Colace] 100 mg PO DAILY@1800 04/27/19 06/08/19 Docusate [Colace] 200 mg PO QAM 04/27/19 06/11/19 Lactobacillus Rhamnosus GG 1 cap PO DAILY 04/27/19 06/11/19 [Culturelle] Levothyroxine Sodium [Synthroid] 125 mcg PO DAILY 04/27/19 06/11/19 Mirabegron [Myrbetriq] 50 mg PO HS 04/27/19 06/11/19 Carbidopa/Levodopa/Entacapone 1 tab PO BID 06/08/19 06/11/19 [Stalevo 200] Cbd Oil Gummies 1 dose PO Q6H PRN 06/08/19 06/11/19 Rivastigmine 9.5MG/24Hr Patch 1 patch TRANSDERM Q24HR 06/08/19 06/08/19 [Exelon 9.5MG/24Hr Patch] Previous Rx's Medication Instructions Recorded Carbidopa-Levodopa ER 50-200Mg 1 each PO QID tablet.er 04/30/19 [Sinemet CR 50-200 mg] Lisinopril [Zestril] 10 mg PO DAILY #30 tab 04/30/19 Metoprolol Tartrate [Lopressor] 25 mg PO BID #60 tablet 04/30/19 Allergies Allergy/AdvReac Type Severity Reaction Status Date / Time morphine Allergy Hallucinati Verified 06/08/19 15:22 ons Review of Systems ROS Statement: Those systems with pertinent positive or pertinent negative responses have been documented in the HPI. ROS Other: All systems not noted in ROS Statement are negative. Past Medical History Past Medical History: Hyperlipidemia, Hypertension Additional Past Medical History / Comment(s): parkinson,hx hydrocephalus History of Any Multi-Drug Resistant Organisms: None Reported Past Surgical History: Back Surgery, Orthopedic Surgery Additional Past Surgical History / Comment(s): cerebral shunt 2018 Past Anesthesia/Blood Transfusion Reactions: No Reported Reaction Additional Past Anesthesia/Blood Transfusion Reaction / Comment(s): no hx blood transfusion Past Psychological History: No Psychological Hx Reported Smoking Status: Former smoker - Past Family History Brother(s) Additional Family Medical History / Comment(s): exposed to agent orgnae Father History Unknown: Yes Mother Additional Family Medical History / Comment(s): passed in 2014 of old age at 95 General Exam Limitations: no limitations General appearance: alert, in no apparent distress Head exam: Present: atraumatic, normocephalic, normal inspection Eye exam: Present: normal appearance, PERRL, EOMI. Absent: scleral icterus, conjunctival injection, periorbital swelling ENT exam: Present: normal exam, mucous membranes moist Neck exam: Present: normal inspection. Absent: tenderness, meningismus, lymphadenopathy Respiratory exam: Present: normal lung sounds bilaterally. Absent: respiratory distress, wheezes, rales, rhonchi, stridor Cardiovascular Exam: Present: regular rate, normal rhythm, normal heart sounds. Absent: systolic murmur, diastolic murmur, rubs, gallop, clicks GI/Abdominal exam: Present: soft, normal bowel sounds. Absent: distended, tenderness, guarding, rebound, rigid Extremities exam: Present: normal inspection, full ROM, normal capillary refill. Absent: tenderness, pedal edema, joint swelling, calf tenderness Back exam: Present: normal inspection Neurological exam: Present: alert, oriented X3, CN II-XII intact Psychiatric exam: Present: normal affect, normal mood Skin exam: Present: warm, dry, intact, normal color. Absent: rash Course Vital Signs 06/26/19 06/26/19 11:55 12:02 Temperature 96.9 F L Pulse Rate 58 L 57 L Respiratory 18 20 Rate Blood Pressure 182/83 169/71 O2 Sat by Pulse 99 98 Oximetry EKG Findings - EKG Comments: EKG Findings:: Twelve-lead EKG shows ventricular rate 55 bpm, slightly long OR i nterval, normal QRS complexes and ST elevation, interpreted by me as sinus bradycardia with first-degree AV block. Medical Decision Making - Medical Decision Making Patient presents with lightheadedness and what sounds like might have been a syncopal episode. I will consult cardiology and neurology. Patient will be admitted to the hospital. - Lab Data Result diagrams: 06/26/19 12:00 06/26/19 12:00 Lab Results 06/26/19 06/26/19 06/26/19 Range/Units 12:00 12:00 12:00 WBC 8.7 (3.8-10.6) k/uL RBC 4.16 L (4.30-5.90) m/uL Hgb 11.5 L (13.0-17.5) gm/dL Hct 36.3 L (39.0-53.0) % MCV 87.4 (80.0-100.0) fL MCH 27.6 (25.0-35.0) pg MCHC 31.6 (31.0-37.0) g/dL RDW 14.2 (11.5-15.5) % Plt Count 270 (150-450) k/uL Neutrophils % 74 % Lymphocytes % 12 % Monocytes % 7 % Eosinophils % 5 % Basophils % 2 % Neutrophils # 6.4 (1.3-7.7) k/uL Lymphocytes # 1.0 (1.0-4.8) k/uL Monocytes # 0.6 (0-1.0) k/uL Eosinophils # 0.4 (0-0.7) k/uL Basophils # 0.2 (0-0.2) k/uL Hypochromasia Slight PT 9.8 (9.0-12.0) sec INR 0.9 (<1.2) APTT 21.1 L (22.0-30.0) sec Sodium 142 (137-145) mmol/L Potassium 4.5 (3.5-5.1) mmol/L Chloride 110 H (98-107) mmol/L Carbon Dioxide 27 (22-30) mmol/L Anion Gap 5 mmol/L BUN 25 H (9-20) mg/dL Creatinine 1.10 (0.66-1.25) mg/dL Est GFR (CKD-EPI)AfAm 75 (>60 ml/min/1.73 sqM) Est GFR (CKD-EPI)NonAf 65 (>60 ml/min/1.73 sqM) Glucose 138 H (74-99) mg/dL Calcium 9.8 (8.4-10.2) mg/dL Magnesium 2.1 (1.6-2.3) mg/dL Total Bilirubin 0.8 (0.2-1.3) mg/dL AST 20 (17-59) U/L ALT <6 (4-49) U/L Alkaline Phosphatase 58 (38-126) U/L Troponin I (0.000-0.034) ng/mL Total Protein 6.3 (6.3-8.2) g/dL Albumin 3.6 (3.5-5.0) g/dL 06/26/19 Range/Units 12:00 WBC (3.8-10.6) k/uL RBC (4.30-5.90) m/uL Hgb (13.0-17.5) gm/dL Hct (39.0-53.0) % MCV (80.0-100.0) fL MCH (25.0-35.0) pg MCHC (31.0-37.0) g/dL RDW (11.5-15.5) % Plt Count (150-450) k/uL Neutrophils % % Lymphocytes % % Monocytes % % Eosinophils % % Basophils % % Neutrophils # (1.3-7.7) k/uL Lymphocytes # (1.0-4.8) k/uL Monocytes # (0-1.0) k/uL Eosinophils # (0-0.7) k/uL Basophils # (0-0.2) k/uL Hypochromasia PT (9.0-12.0) sec INR (<1.2) APTT (22.0-30.0) sec Sodium (137-145) mmol/L Potassium (3.5-5.1) mmol/L Chloride (98-107) mmol/L Carbon Dioxide (22-30) mmol/L Anion Gap mmol/L BUN (9-20) mg/dL Creatinine (0.66-1.25) mg/dL Est GFR (CKD-EPI)AfAm (>60 ml/min/1.73 sqM) Est GFR (CKD-EPI)NonAf (>60 ml/min/1.73 sqM) Glucose (74-99) mg/dL Calcium (8.4-10.2) mg/dL Magnesium (1.6-2.3) mg/dL Total Bilirubin (0.2-1.3) mg/dL AST (17-59) U/L ALT (4-49) U/L Alkaline Phosphatase (38-126) U/L Troponin I <0.012 (0.000-0.034) ng/mL Total Protein (6.3-8.2) g/dL Albumin (3.5-5.0) g/dL Disposition Clinical Impression: Syncope Disposition: ADMITTED IP TO THIS HOSP Condition: Fair Is patient prescribed a controlled substance at d/c from ED?: No Referrals: Sathish Jc MD [Primary Care Provider] - 1-2 days
--- NOTE | 2019-06-26 13:26 | CT ---
EXAMINATION TYPE: CT brain wo con DATE OF EXAM: 06/26/2019 COMPARISON: 04/27/2019 INDICATION: Syncopal episode with memory loss DLP: 1158.4 mGycm, Automated exposure control for dose reduction was used. CONTRAST: None CT of the brain is performed utilizing 3 mm thick sections through the posterior fossa and 3 mm thick sections through the remaining calvarium. Study is performed within 24 hours of arrival to the hosp ital. No abnormal hyperdensity is present to suggest an acute intracranial hemorrhage. No mass lesion is evident. No acute infarcts are evident. There is a right frontal shunt with the tip in the right lateral ventr icle. Ventricles appear appropriate for the patient age. No temporal horn dilatation is evident. No i nterval hydrocephalus from the prior exam is evident. There is some mild periventricular white matter hypodensity, likely on the basis of mild white matter ischemic changes. 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 Paranasal sinuses and mastoid air cells within the [id number] are clear. IMPRESSIONS: 1. No acute intracranial process. 2. Ventricle and sulci are stable in appearance from comparison without interval hydrocephalus. Right -sided shunt is unchanged in position. 3. Mild periventricular white matter ischemic type changes
[2019-06-26 14:33] LABS: Appearance,Urine Clear (Clear); Bilirubin,Urine Negative (Negative); Blood,Urine Negative (Negative); Color,Urine Yellow; Glucose,Urine (UA) Negative (Negative); Ketones,Urine Trace (Negative); Leukocyte Esterase,Urine Negative (Negative); Nitrite,Urine Negative (Negative); PH, Urine 5.5 (5.0-8.0); Protein,Urine Trace (Negative); Specific Gravity,Urine 1.018 (1.001-1.035); Urobilinogen,Urine <2.0 mg/dL (<2.0)
--- NOTE | 2019-06-26 14:58 | P.HPIM ---
History of Present Illness This is a pleasant 78 years old male with past medical history of hypertension, hyperlipidemia, Parkinson disease, hydrocephalus, back surgery uses marijuana. Presents because of periods of unresponsiveness. Patient was having his breakfast this morning on the table while he was sitting he became unresponsive, still breathing per family at bedside, he said he was leaning backwards,continuous opening I, he was pale, and incoherent, not breathing for sometimes followed by shallow breathing. Episodes lasted for a few minutes, with estimated is about 25 minutes altogether. She checked her blood pressure during the episodes it was 94/32, by the time EMS arrived his oxygen saturation was 97% and blood pressure was 101/52, at that time patient woke up. Patient himself says he cannot remember anything, as less than Remember he was sitting and next thing the EMS personnel around. Patient denies chest pain or dyspnea or coughing. No bowel changes, no diarrhea or vomiting. He sees Dr. Waite and he had a cardiac cath about 2 weeks ago which was unremarkable except for 20% blockage. Last April 13/[address] Walker office visit neurologist when he was noticed to have low blood pressure under visit to the hospital. He denies Smoking or alcohol abuse At baseline walks using a cane Vitals stable, heart rate is 57-58, blood pressure 156/72. Labs including CBC, INR, BMP and liver enzymes were unremarkable. CT of the brain: No acute process, a shunt into place with no change from previous exam. Chest x-ray: No acute process. The EKG in the system. In the emergency room he got 1 L of normal saline Review of Systems CONSTITUTIONAL: No fever, no malaise, no fatigue. HEENT: No recent visual problems or hearing problems. Denied any sore throat. CARDIOVASCULAR: No orthopnea, PND, no palpitations, no syncope. PULMONARY: No shortness of breath, no cough, no hemoptysis. GASTROINTESTINAL: No diarrhea, no nausea, no vomiting, no abdominal pain. Normoactive bowel sounds. NEUROLOGICAL: No headaches, no weakness, no numbness. HEMATOLOGICAL: Denies any bleeding or petechiae. GENITOURINARY: Denies any burning micturition, frequency, or urgency. MUSCULOSKELETAL/RHEUMATOLOGICAL: Denies any joint pain, swelling, or any muscle pain. ENDOCRINE: Denies any polyuria or polydipsia. Past Medical History Past Medical History: Hyperlipidemia, Hypertension Additional Past Medical History / Comment(s): parkinson,hx hydrocephalus History of Any Multi-Drug Resistant Organisms: None Reported Past Surgical History: Back Surgery, Orthopedic Surgery Additional Past Surgical History / Comment(s): cerebral shunt 2018 Past Anesthesia/Blood Transfusion Reactions: No Reported Reaction Additional Past Anesthesia/Blood Transfusion Reaction / Comment(s): no hx blood transfusion Past Psychological History: No Psychological Hx Reported Smoking Status: Former smoker - Past Family History Brother(s) Additional Family Medical History / Comment(s): exposed to agent orgnae Father History Unknown: Yes Mother Additional Family Medical History / Comment(s): passed in 2014 of old age at 95 Medications and Allergies Home Medications Medication Instructions Recorded Confirmed Type Aspirin [Adult Low Dose Aspirin EC] 81 mg PO DAILY 04/27/19 06/26/19 History Atorvastatin [Lipitor] 20 mg PO HS 04/27/19 06/26/19 History Clopidogrel Bisulfate [Plavix] 75 mg PO DAILY 04/27/19 06/26/19 History Docusate [Colace] 100 mg PO DAILY@1800 04/27/19 06/26/19 History Docusate [Colace] 200 mg PO QAM 04/27/19 06/26/19 History Lactobacillus Rhamnosus GG 1 cap PO DAILY@1330 04/27/19 06/26/19 History [Culturelle] Levothyroxine Sodium [Synthroid] 125 mcg PO DAILY 04/27/19 06/26/19 History Mirabegron [Myrbetriq] 50 mg PO HS 04/27/19 06/26/19 History Lisinopril [Zestril] 10 mg PO DAILY #30 tab 04/30/19 06/26/19 Rx Metoprolol Tartrate [Lopressor] 25 mg PO BID #60 tablet 04/30/19 06/26/19 Rx Carbidopa/Levodopa/Entacapone 1 tab PO BID 06/08/19 06/26/19 History [Stalevo 200] Rivastigmine 9.5MG/24Hr Patch 1 patch TRANSDERM Q24HR 06/08/19 06/26/19 History [Exelon 9.5MG/24Hr Patch] Alendronate Sodium [Fosamax] 70 mg PO WE 06/26/19 06/26/19 History Carbidopa-Levodopa ER 50-200Mg 1 tab PO QID 06/26/19 06/26/19 History [Sinemet CR 50-200 mg] Allergies Allergy/AdvReac Type Severity Reaction Status Date / Time morphine Allergy Hallucinati Verified 06/26/19 13:59 ons Physical Exam Vitals: Vital Signs Temp Pulse Resp BP Pulse Ox 06/26/19 14:02 57 L 20 156/72 98 06/26/19 13:02 57 L 20 149/68 98 06/26/19 12:02 57 L 20 169/71 98 06/26/19 11:55 96.9 F L 58 L 18 182/83 99 Intake and Output 06/25/19 06/26/19 06/26/19 22:59 06:59 14:59 Other: Weight 90.718 kg GENERAL: The patient is alert and oriented x3, not in any acute distress. Well developed, well nourished. HEENT: Pupils are round and equally reacting to light. EOMI. No scleral icterus. No conjunctival pallor. Normocephalic, atraumatic. No pharyngeal erythema. No thyromegaly. CARDIOVASCULAR: S1 and S2 present. No murmurs, rubs, or gallops. PULMONARY: Chest is clear to auscultation, no wheezing or crackles. ABDOMEN: Soft, nontender, nondistended, normoactive bowel sounds. No palpable organomegaly. MUSCULOSKELETAL: No joint swelling or deformity. EXTREMITIES: No cyanosis, clubbing, or pedal edema. NEUROLOGICAL: Gross neurological examination did not reveal any focal deficits. SKIN: No rashes. No petechiae Results CBC & Chem 7: 06/26/19 12:00 06/26/19 12:00 Labs: Abnormal Lab Results - Last 24 Hours (Table) 06/26/19 06/26/19 06/26/19 Range/Units 12:00 12:00 12:00 RBC 4.16 L (4.30-5.90) m/uL Hgb 11.5 L (13.0-17.5) gm/dL Hct 36.3 L (39.0-53.0) % APTT 21.1 L (22.0-30.0) sec Chloride 110 H (98-107) mmol/L BUN 25 H (9-20) mg/dL Glucose 138 H (74-99) mg/dL Assessment and Plan Assessment: Syncope Parkinson disease Hypertension History of hydrocephalus status post right shunt History of back surgery Plan: This is a pleasant 78 years old male who presents with syncope. Consult cardiology and neurology service already done. All of the recommendation. Check hemoglobin A1c, TSH and B12 Labs and medication were reviewed.. Continue same treatment. Continue with symptomatic treatment. Resume home medication. Monitor lytes and vitals. DVT and GI prophylaxis. Further recommendations of the clinical course of the patient DVT prophylaxis: Subcutaneous heparin GI Prophylaxis: Pepcid PT/OT: Pending Prognosis is guarded
[2019-06-26 16:04] LABS: T4, Free (Free Thyroxine) 1.68 ng/dL (0.78-2.19)
[2019-06-26] MEDS: CARBIDOPA-LEVODOPA ER 50-200MG 1 EACH TABLET.ER PO SCH ×2 (17:53→19:44)
[2019-06-26] MEDS: DOCUSATE 100 MG CAP PO SCH (17:54)
[2019-06-26] MEDS: ATORVASTATIN 20 MG TAB PO SCH (19:44)
[2019-06-26] MEDS: NON FORMULARY DRUG (Mirabegron [Myrbetriq] 50 MG) PO SCH (19:44)
[2019-06-26] MEDS: METOPROLOL TARTRATE 25 MG TAB PO SCH (19:44)
[2019-06-26] MEDS: amLODIPine 5 MG TAB PO SCH (19:44)
--- NOTE | 2019-06-26 22:38 | P.CNNES ---
History of Present Illness Consult date: 06/26/19 Requesting physician: Keven Mojica Reason for Consult: Syncope History of Present Illness: Patient is a 78-year-old male who has been diagnosed with Parkinson's disease since July 2016, also had normal pressure hydrocephalus while he was living in [place] for which she had placement of the ventriculoperitoneal shunt on 03/27/2018. Patient currently follows up with Dr. Dyer. Patient came to the hospital because of syncopal spell. I spoke to patient's on the phone, who states that patient was looking sluggish this morning. He came in the kitchen and sat on the chair. He was alright for a while, but shortly after he became incoherent, his eyes were closed, mouth and dropped his tongue was twisted and he was not breathing. He was rigid in the upper body. Patient's son tried to lift his arm up several times so he would breathe. Patient's checked his blood pressure was 94/32. EMS was called and when they checked his blood pressure was 101/52. Patient slowly came to. He does not remember anything until he was in the ER. He did not bite his tongue, did not lose control of urine. He was brought to the hospital, where he underwent an EKG, which revealed sinus bradycardia with first-degree AV block, computed tomography scan of the head revealed no acute process. Ventricles and sulci are stable in appearance from comparison without interval hydrocephalus. Right-sided shunt is unchanged in position. Mild periventricular white matter ischemic type changes. On my review, there is no evidence of significant hydrocephalus at this time. Shunt is probably patent. Chest x-ray showed chronic changes without acute pulmonary process. Blood test shows normal WBC, hemoglobin 11.5. Platelets 270, electrolytes are normal, renal functions normal, liver functions normal. TSH is low 0.021 and free T4 is normal 1.68. UA is negative. Patient at present feels fine. Patient's further states that patient has been having episodes, in which he freezes, stares off into space, becomes incoherent. These episodes are occurring about once or twice a week. He usually comes out of it in couple minutes. He had 1 bad spell in April 2017, when he fell off the bed. He had another spell at his neurologist office in April 2019 and his blood pressure was noted to be low. His dose of Stalevo was reduced from 4 times a day down to twice a day. Patient states it can happen when he is just sitting, or when he tries to get up. Patient and his are not very good historians. Patient's total cholesterol is 135, LDL 81, HDL 24 and triglycerides 150. Review of Systems Denies headache problem with the vision hoarseness or dysphagia. Denies shortness of breath wheezing cough, diplopia. Denies numbness tingling focal weakness. All other review of systems unremarkable except as per HPI. Past Medical History Past Medical History: Hyperlipidemia, Hypertension Additional Past Medical History / Comment(s): parkinson,hx hydrocephalus History of Any Multi-Drug Resistant Organisms: None Reported Past Surgical History: Back Surgery, Orthopedic Surgery Additional Past Surgical History / Comment(s): cerebral shunt 2018 Past Anesthesia/Blood Transfusion Reactions: No Reported Reaction Additional Past Anesthesia/Blood Transfusion Reaction / Comment(s): no hx blood transfusion Past Psychological History: No Psychological Hx Reported Smoking Status: Former smoker - Past Family History Brother(s) Additional Family Medical History / Comment(s): exposed to agent orgnae Father History Unknown: Yes Mother Additional Family Medical History / Comment(s): passed in 2014 of old age at 95 Medications and Allergies Home Medications Medication Instructions Recorded Confirmed Type Aspirin [Adult Low Dose Aspirin EC] 81 mg PO DAILY 04/27/19 06/26/19 History Atorvastatin [Lipitor] 20 mg PO HS 04/27/19 06/26/19 History Clopidogrel Bisulfate [Plavix] 75 mg PO DAILY 04/27/19 06/26/19 History Docusate [Colace] 100 mg PO DAILY@1800 04/27/19 06/26/19 History Docusate [Colace] 200 mg PO QAM 04/27/19 06/26/19 History Lactobacillus Rhamnosus GG 1 cap PO DAILY@1330 04/27/19 06/26/19 History [Culturelle] Levothyroxine Sodium [Synthroid] 125 mcg PO DAILY 04/27/19 06/26/19 History Mirabegron [Myrbetriq] 50 mg PO HS 04/27/19 06/26/19 History Lisinopril [Zestril] 10 mg PO DAILY #30 tab 04/30/19 06/26/19 Rx Metoprolol Tartrate [Lopressor] 25 mg PO BID #60 tablet 04/30/19 06/26/19 Rx Carbidopa/Levodopa/Entacapone 1 tab PO BID 06/08/19 06/26/19 History [Stalevo 200] Rivastigmine 9.5MG/24Hr Patch 1 patch TRANSDERM Q24HR 06/08/19 06/26/19 History [Exelon 9.5MG/24Hr Patch] Alendronate Sodium [Fosamax] 70 mg PO WE 06/26/19 06/26/19 History Carbidopa-Levodopa ER 50-200Mg 1 tab PO QID 06/26/19 06/26/19 History [Sinemet CR 50-200 mg] Allergies Allergy/AdvReac Type Severity Reaction Status Date / Time morphine Allergy Hallucinati Verified 06/26/19 13:59 ons Physical Examination - Vital Signs Vital Signs: Vital Signs Temp Pulse Pulse Resp BP BP Pulse Ox 06/26/19 18:18 97.9 F 60 18 184/78 97 06/26/19 18:17 184/78 06/26/19 15:42 97.2 F L 57 L 18 191/81 99 06/26/19 14:25 20 06/26/19 14:02 57 L 20 156/72 98 06/26/19 13:02 57 L 20 149/68 98 06/26/19 12:02 57 L 20 169/71 98 06/26/19 11:55 96.9 F L 58 L 18 182/83 99 Intake and Output 06/26/19 06/26/19 06/26/19 06:59 14:59 22:59 Intake Total 300 150 Balance 300 150 Intake: Oral 300 150 Other: # Voids 1 Weight 90.718 kg On examination patient is an elderly male, in no acute distress. He is alert and awake fully oriented. Patient knows that it is June 2019 and t hat he is in [facility] in [facility]. Speech and language functions are normal with no aphasia or dysarthria. Patient has slightly slow mentation, prolonged latency time to answer questions. On cranial exam showed pupils are round and reactive to light, visual vu are full, extraocular muscles are intact. Face is symmetric and tongue protrudes the midline. Palatal elevation and sensation normal. On muscle strength testing there is no pronator drift and the strength is normal in arms and legs distally and proximally. Reflexes are very diminished and plantars are downgoing. Sensory touch is equal. No ataxia for [id number]. Bulk of muscles normal. Gait deferred. Patient states that he often uses a cane, sometimes does not. No obvious tremors at rest noted. Results - Laboratory Findings CBC and BMP: 06/26/19 12:00 06/26/19 12:00 Abnormal Lab Findings: Abnormal Labs 06/26/19 06/26/19 06/26/19 12:00 12:00 12:00 RBC 4.16 L Hgb 11.5 L Hct 36.3 L APTT 21.1 L Chloride 110 H BUN 25 H Glucose 138 H TSH Urine Protein Urine Ketones 06/26/19 06/26/19 12:00 14:24 RBC Hgb Hct APTT Chloride BUN Glucose TSH 0.021 L Urine Protein Trace H Urine Ketones Trace H Assessment and Plan Assessment: * 78-year-old male, admitted with recurrent stereotypical episodes of staring off spells, off and on for 1-2 years, rule out focal seizures. * Syncopal spells, rule out cardiac etiology, rule out orthostatic hypotension versus arrhythmia. * History of normal pressure hydrocephalus, status post placement of ventriculoperitoneal shunt in July 2016. Patient's current computed tomography scan of the head appears stable with no evidence of recurrence of hydrocephalus. * Parkinsonism Plan: * We will check EEG to rule out any epileptiform activity. Patient may benefit from 24 hours ambulatory EEG, if the routine EEG is negative. * Patient had a carotid Doppler performed on 04/29/2019 which did not reveal any significant stenosis. Antegrade flow in both vertebral arteries. No need to repeat study. * Patient had a 2-D echo performed on 04/29/2019, which revealed EF 60-65%. Normal left atrial and right atrial size. * Consider checking a tilt table test. * Cardiology also on board, to rule out cardiac etiology. * Patient's TSH is low, need to adjust thyroid replacement therapy. We will patric ck B12, folate. * Dr. Garcia will be covering over the weekend.
[2019-06-26] MEDS: RIVASTIGMINE 4.6MG/24HR PATCH TRANSDERM SCH (23:19)
[2019-06-26 23:47] LABS: Hemoglobin A1C 5.9 % (4.0-6.0)
[2019-06-27] MEDS ORDERED: hydrALAZINE HCL 20 MG/ML 1 ML VIAL IVP PRN (03:17)
[2019-06-27] MEDS ORDERED: LEVOTHYROXINE 125 MCG TAB PO SCH (06:30)
[2019-06-27] MEDS ORDERED: RIVASTIGMINE 9.5MG/24HR PATCH TRANSDERM SCH (09:00)
[2019-06-27] MEDS: ASPIRIN 81 MG PO SCH (09:21)
[2019-06-27] MEDS: METOPROLOL TARTRATE 25 MG TAB PO SCH ×2 (09:21→21:03)
[2019-06-27] MEDS: CARBIDOPA-LEVODOPA ER 50-200MG 1 EACH TABLET.ER PO SCH ×6 (09:21→21:05)
[2019-06-27] MEDS: amLODIPine 5 MG TAB PO SCH (09:22)
[2019-06-27] MEDS: CLOPIDOGREL 75 MG TAB PO SCH (09:22)
[2019-06-27] MEDS: LISINOPRIL 10 MG TAB PO SCH (09:25)
--- NOTE | 2019-06-27 10:03 | P.CRDCN ---
History of Present Illness Consult date: 06/27/19 Consult reason: sycope History of present illness: The patient is a 78-year-old male who follows with Dr. Waite in the office, who presents to the hospital after experiencing a syncopal episode. According to his family he was sitting at the breakfast table when he became nonresponsive. He was approximately unresponsive for 25 minutes. He was initially hypotensive, however by the time EMS arrived his blood pressure was 101/52. He states he does not remember anything during the episode. EKG upon arrival showed sinus rhythm with first-degree AV block. Troponins were negative 3. The patient did undergo cardiac cath on 06/11/2019 which showed mild triple vessel disease. Ejection fraction was noted to be at 60%. Neurology suggested that his Parkinson's meds be titrated due to his AV block and hypotension. On exam this morning the patient is resting comfortably in bed. He states he did experience some dizziness after ambulating to the bathroom. He denies any chest pain, chest pressure, dyspnea, or recurrent syncope. Orthostatic blood pressures are positive with a 40 point drop in systolic pressure. He is notably hypertensive and was given his blood pressure medications this morning. PAST MEDICAL HISTORY: Coronary artery disease, dyslipidemia, hypertension, Parkinson's disease, hypothyroidism REVIEW OF SYSTEMS: No chest discomfort. No fever or chills. No dyspnea, cough or expectoration. No diaphoresis. Patient denies headache, blurred vision, double vision. Patient denies any stomach discomfort. No nausea, vomiting. No hematochezia. No hematemesis. Denies any black stools or blood in his stools. Denies dysuria or hematuria. No muscle weakness or numbness. Positive for dizziness. PHYSICAL EXAMINATION: This is a 78-year-old male in no apparent distress at the time of my examination. HEENT: Head is atraumatic, normocephalic. Pupils are equal, round. Sclerae anicteric. Conjunctivae are clear. Mucous membranes of the mouth are moist. Neck is supple. There is no jugular venous distention. No carotid bruit is heard. Hard of hearing. CHEST EXAMINATION: Lungs are clear to auscultation. No chest wall tenderness is noted on palpation or with deep breathing. HEART EXAMINATION: Heart regular rate and rhythm. S1, S2 heard. No murmurs, gallops or rub. ABDOMEN: Soft, nontender. Bowel sounds are heard. No organomegaly noted. EXTREMITIES: 2+ peripheral pulses with no evidence of peripheral edema and no calf tenderness noted. NEUROLOGIC EXAMINATION: Patient is awake, alert and oriented x3. LABORATORY DATA: WBC 8.7, hemoglobin 11.5, hematocrit 36.3, platelets 270, sodium 142, potassium 4.5, BUN 25, creatinine 1.10, AST 0.8, ALT 20, magnesium 2.1, A1c 5.9, troponins negative 3, TSH 0.021 FINAL ASSESSMENT AND PLAN: #1 syncope #2 coronary artery disease, normal troponin, currently on Plavix #3 orthostatic hypotension, currently hypertensive #4 hypothyroidism, low TSH #5 dyslipidemia, on statin therapy PLAN: We will continue current medication regimen. Continue to monitor for bradycardia. Past Medical History Past Medical History: Hyperlipidemia, Hypertension Additional Past Medical History / Comment(s): parkinson,hx hydrocephalus History of Any Multi-Drug Resistant Organisms: None Reported Past Surgical History: Back Surgery, Orthopedic Surgery Additional Past Surgical History / Comment(s): cerebral shunt 2018 Past Anesthesia/Blood Transfusion Reactions: No Reported Reaction Additional Past Anesthesia/Blood Transfusion Reaction / Comment(s): no hx blood transfusion Past Psychological History: No Psychological Hx Reported Smoking Status: Former smoker - Past Family History Brother(s) Additional Family Medical History / Comment(s): exposed to agent orgnae Father History Unknown: Yes Mother Additional Family Medical History / Comment(s): passed in 2014 of old age at 95 Medications and Allergies Home Medications Medication Instructions Recorded Confirmed Type Aspirin [Adult Low Dose Aspirin EC] 81 mg PO DAILY 04/27/19 06/26/19 History Atorvastatin [Lipitor] 20 mg PO HS 04/27/19 06/26/19 History Clopidogrel Bisulfate [Plavix] 75 mg PO DAILY 04/27/19 06/26/19 History Docusate [Colace] 100 mg PO DAILY@1800 04/27/19 06/26/19 History Docusate [Colace] 200 mg PO QAM 04/27/19 06/26/19 History Lactobacillus Rhamnosus GG 1 cap PO DAILY@1330 04/27/19 06/26/19 History [Culturelle] Levothyroxine Sodium [Synthroid] 125 mcg PO DAILY 04/27/19 06/26/19 History Mirabegron [Myrbetriq] 50 mg PO HS 04/27/19 06/26/19 History Lisinopril [Zestril] 10 mg PO DAILY #30 tab 04/30/19 06/26/19 Rx Metoprolol Tartrate [Lopressor] 25 mg PO BID #60 tablet 04/30/19 06/26/19 Rx Carbidopa/Levodopa/Entacapone 1 tab PO BID 06/08/19 06/26/19 History [Stalevo 200] Rivastigmine 9.5MG/24Hr Patch 1 patch TRANSDERM Q24HR 06/08/19 06/26/19 History [Exelon 9.5MG/24Hr Patch] Alendronate Sodium [Fosamax] 70 mg PO WE 06/26/19 06/26/19 History Carbidopa-Levodopa ER 50-200Mg 1 tab PO QID 06/26/19 06/26/19 History [Sinemet CR 50-200 mg] Allergies Allergy/AdvReac Type Severity Reaction Status Date / Time morphine Allergy Hallucinati Verified 06/26/19 13:59 ons Physical Exam Vitals: Vital Signs Temp Pulse Pulse Pulse Pulse Pulse Resp 06/27/19 09:09 62 68 66 06/27/19 08:00 18 06/27/19 07:00 97.5 F L 61 18 06/27/19 05:03 58 L 06/27/19 02:53 06/27/19 02:50 06/27/19 02:45 06/26/19 23:40 98.1 F 57 L 17 06/26/19 18:18 97.9 F 60 18 06/26/19 18:17 06/26/19 15:42 97.2 F L 57 L 18 06/26/19 14:25 20 06/26/19 14:02 57 L 20 06/26/19 13:02 57 L 20 06/26/19 12:02 57 L 20 06/26/19 11:55 96.9 F L 58 L 18 BP BP BP BP BP Pulse Ox 06/27/19 09:09 192/81 149/67 205/75 06/27/19 08:00 06/27/19 07:00 163/75 97 06/27/19 05:03 191/58 06/27/19 02:53 218/74 06/27/19 02:50 231/85 06/27/19 02:45 214/78 06/26/19 23:40 158/60 98 06/26/19 18:18 184/78 97 06/26/19 18:17 184/78 06/26/19 15:42 191/81 99 06/26/19 14:25 06/26/19 14:02 156/72 98 06/26/19 13:02 149/68 98 06/26/19 12:02 169/71 98 06/26/19 11:55 182/83 99 Intake and Output 06/26/19 06/27/19 06/27/19 22:59 06:59 14:59 Intake Total 150 Balance 150 Intake: Oral 150 Other: Voiding Method Toilet # Voids 1 1 Weight 89.2 kg Results 06/26/19 12:00 06/26/19 12:00 Cardiac Enzymes 06/26/19 06/26/19 06/26/19 Range/Units 12:00 12:00 17:21 AST 20 (17-59) U/L Troponin I <0.012 <0.012 (0.000-0.034) ng/mL 06/27/19 Range/Units 00:44 AST (17-59) U/L Troponin I <0.012 (0.000-0.034) ng/mL Coagulation 06/26/19 Range/Units 12:00 PT 9.8 (9.0-12.0) sec APTT 21.1 L (22.0-30.0) sec CBC 06/26/19 Range/Units 12:00 WBC 8.7 (3.8-10.6) k/uL RBC 4.16 L (4.30-5.90) m/uL Hgb 11.5 L (13.0-17.5) gm/dL Hct 36.3 L (39.0-53.0) % Plt Count 270 (150-450) k/uL Comprehensive Metabolic Panel 06/26/19 Range/Units 12:00 Sodium 142 (137-145) mmol/L Potassium 4.5 (3.5-5.1) mmol/L Chloride 110 H (98-107) mmol/L Carbon Dioxide 27 (22-30) mmol/L BUN 25 H (9-20) mg/dL Creatinine 1.10 (0.66-1.25) mg/dL Glucose 138 H (74-99) mg/dL Calcium 9.8 (8.4-10.2) mg/dL AST 20 (17-59) U/L ALT <6 (4-49) U/L Alkaline Phosphatase 58 (38-126) U/L Total Protein 6.3 (6.3-8.2) g/dL Albumin 3.6 (3.5-5.0) g/dL Current Medications Generic Name Dose Route Start Last Admin Trade Name Freq PRN Reason Stop Dose Admin Al Hydroxide/Mg Hydroxide 15 ml 06/26/19 13:20 Maalox PO Q6HR PRN Indigestion Amlodipine Besylate 5 mg 06/26/19 18:45 06/27/19 09:22 Norvasc PO 5 mg DAILY CELESTE Administration Aspirin 81 mg 06/27/19 09:00 06/27/19 09:21 Aspirin PO 81 mg DAILY CELESTE Administration Atorvastatin Calcium 20 mg 06/26/19 21:00 06/26/19 19:44 Lipitor PO 20 mg HS CELESTE Administration Carbidopa/Levodopa 1 each 06/26/19 18:00 06/27/19 09:25 Sinemet Er 50-200 PO Not Given QID CELESTE Carbidopa/Levodopa 1 each 06/27/19 09:00 06/27/19 09:23 Sinemet Er 50-200 PO 1 each TID CELESTE Administration Clopidogrel Bisulfate 75 mg 06/27/19 09:00 06/27/19 09:22 Plavix PO 75 mg DAILY CELESTE Administration Docusate Sodium 100 mg 06/26/19 18:00 06/26/19 17:54 Colace PO 100 mg DAILY@1800 CELESTE Administration Hydralazine HCl 10 mg 06/27/19 03:17 06/27/19 03:44 Apresoline IVP 10 mg Q6HR PRN Administration Blood Pressure - High Levothyroxine Sodium 125 mcg 06/27/19 06:30 06/27/19 05:58 Synthroid PO 125 mcg DAILY@0630 CELESTE Administration Lisinopril 10 mg 06/27/19 09:00 06/27/19 09:25 Zestril PO 10 mg DAILY CELESTE Administration Metoprolol Tartrate 25 mg 06/26/19 21:00 06/27/19 09:21 Lopressor PO 25 mg BID CELESTE Administration Naloxone HCl 0.2 mg 06/26/19 13:20 Narcan IV Q2M PRN Opioid Reversal Non-Formulary Medication 70 mg 07/01/19 09:00 Alendronate Sodium [Fosamax] PO WE CELESTE Non-Formulary Medication 50 mg 06/26/19 21:00 06/26/19 19:44 Mirabegron [Myrbetriq] PO Not Given HS CELESTE Ondansetron HCl 4 mg 06/26/19 13:20 Zofran IVP Q8HR PRN Nausea And Vomiting Rivastigmine 1 patch 06/26/19 23:00 06/26/19 23:19 Exelon 4.6mg/24hr Patch TRANSDERM 1 patch Q24H CELESTE Administration Temazepam 15 mg 06/26/19 13:20 Restoril PO HS PRN Insomnia Intake and Output 06/26/19 06/27/19 06/27/19 22:59 06:59 14:59 Intake Total 150 Balance 150 Intake: Oral 150 Other: Voiding Method Toilet # Voids 1 1 Weight 89.2 kg 06/26/19 12:00 06/26/19 12:00
[2019-06-27] MEDS: ACETAMINOPHEN TAB 325 MG TAB PO PRN ×2 (11:30→16:29)
[2019-06-27] MEDS: STALEVO PO SCH ×2 (15:19→21:06)
[2019-06-27] MEDS: CYANOCOBALAMIN 1,000 MCG/ML 1 ML VIAL IM SCH (15:19)
--- NOTE | 2019-06-27 15:33 | P.PN ---
Subjective Progress Note Date: 06/27/19 Principal diagnosis: 1. Loss of consciousness, likely syncope 2. Parkinson's disease 3. Hypertension 4. Orthostatic hypotension The patient is seen in neurologic follow-up via teleneurology on June 27, 2019. The patient reports noticing no change in his condition, associated with changing of the dosing of his Sinemet. Orthostatic vital signs were checked today. They were found to be positive. Objective - Vital Signs Vital signs: Vital Signs Temp 98.1 F 06/27/19 11:54 Pulse 69 06/27/19 11:54 Resp 18 06/27/19 11:54 BP 124/70 06/27/19 11:54 Pulse Ox 96 06/27/19 11:54 Intake & Output 06/26/19 06/27/19 06/27/19 18:59 06:59 18:59 Intake Total 928 456 9683 Balance 816 391 3091 Weight 90.718 kg 89.2 kg Intake: Oral 300 150 480 Other 600 Other: Voiding Method Toilet # Voids 1 - Exam Gen.: The patient is reclining in the bed. He is well-nourished, well-developed and in no acute distress. HEENT: Head is atraumatic, normocephalic. Fundus not visualized. There is no scleral icterus. Mucous membranes are moist. Neurological examination: Pupils are equal, round and reactive to light. Visual vu are full to confrontation. Extraocular muscles are intact. Facial sensation is intact. There is no facial asymmetry. The patient has normal facial expression. There is a mild decrease in blink rate. Motor: Strength is 5/5 throughout Sensation: There is decreased light touch to the left lower extremity, otherwise sensation is intact. Coordination: Finger to nose testing is intact. There is no evidence of tremor. - Labs CBC & Chem 7: 06/26/19 12:00 06/26/19 12:00 Assessment and Plan Assessment: Impressions: 1. Loss of consciousness, likely secondary to syncope 2. Orthostatic hypotension 3. Parkinson's disease 4. Memory loss secondary to Parkinson's disease Plan: Recommendations: 1. Await EEG report 2. Consider support stockings for orthostasis 3. Continue current dose of Sinemet 4. If the patient is determined to be medically stable, he may be discharged f rom a neurologic standpoint and follow up with his neurologist Time with Patient: Less than 30 (spent 25 minutes with patient via teleneurology)
[2019-06-27] MEDS: DOCUSATE 100 MG CAP PO SCH (16:27)
[2019-06-27] MEDS: ATORVASTATIN 20 MG TAB PO SCH (21:03)
[2019-06-27] MEDS: MELATONIN 3 MG TABLET PO SCH (21:04)
[2019-06-27] MEDS: RIVASTIGMINE 4.6MG/24HR PATCH TRANSDERM SCH ×2 (21:06→22:44)
[2019-06-27] MEDS: NON FORMULARY DRUG (Mirabegron [Myrbetriq] 50 MG) PO SCH (21:23)
--- NOTE | 2019-06-27 22:30 | P.PN ---
Subjective This is a pleasant 78 years old male with past medical history of hypertension, hyperlipidemia, Parkinson disease, hydrocephalus, back surgery uses marijuana. Presents because of periods of unresponsiveness. Patient was having his breakfast this morning on the table while he was sitting he became unresponsive, still breathing per family at bedside, he said he was leaning backwards,continuous opening I, he was pale, and incoherent, not breathing for sometimes followed by shallow breathing. Episodes lasted for a few minutes, with estimated is about 25 minutes altogether. She checked her blood pressure during the episodes it was 94/32, by the time EMS arrived his oxygen saturation was 97% and blood pressure was 101/52, at that time patient woke up. Patient himself says he cannot remember anything, as less than Remember he was sitting and next thing the EMS personnel around. Patient denies chest pain or dyspnea or coughing. No bowel changes, no diarrhea or vomiting. He sees Dr. Waite and he had a cardiac cath about 2 weeks ago which was unremarkable except for 20% blockage. Last April 13/[address] Walker office visit neurologist when he was noticed to have low blood pressure under visit to the hospital. He denies Smoking or alcohol abuse At baseline walks using a cane Vitals stable, heart rate is 57-58, blood pressure 156/72. Labs including CBC, INR, BMP and liver enzymes were unremarkable. CT of the brain: No acute process, a shunt into place with no change from previous exam. Chest x-ray: No acute process. The EKG in the system. In the emergency room he got 1 L of normal saline 06/27/2019 Patient has no more episodes of dizziness or syncope. However when we checked orthostasis he was was positive patient has been evaluated by neurologist and he made some changes to his medication, please refer to his note for more details. And recommended EEG which is pending. Cardiology team also evaluated the patient. His TSH is low while T4 is normal. We going to lower his dose of levothyroxine 125 down to 100 g daily Objective - Vital Signs Vital signs: Vital Signs Temp 98.1 F 06/27/19 11:54 Pulse 69 06/27/19 11:54 Resp 18 06/27/19 11:54 BP 124/70 06/27/19 11:54 Pulse Ox 96 06/27/19 11:54 Intake & Output 06/26/19 06/27/19 06/27/19 18:59 06:59 18:59 Intake Total 356 860 2832 Balance 689 811 3260 Weight 90.718 kg 89.2 kg Intake: Oral 300 150 480 Other 600 Other: Voiding Method Toilet # Voids 1 - Exam GENERAL: The patient is alert and oriented x3, not in any acute distress. Well developed, well nourished. HEENT: Pupils are round and equally reacting to light. EOMI. No scleral icterus. No conjunctival pallor. Normocephalic, atraumatic. No pharyngeal erythema. No thyromegaly. CARDIOVASCULAR: S1 and S2 present. No murmurs, rubs, or gallops. PULMONARY: Chest is clear to auscultation, no wheezing or crackles. ABDOMEN: Soft, nontender, nondistended, normoactive bowel sounds. No palpable organomegaly. MUSCULOSKELETAL: No joint swelling or deformity. EXTREMITIES: No cyanosis, clubbing, or pedal edema. NEUROLOGICAL: Gross neurological examination did not reveal any focal deficits. SKIN: No rashes. No petechiae - Labs CBC & Chem 7: 06/26/19 12:00 06/26/19 12:00 Labs: Abnormal Lab Results - Last 24 Hours (Table) 06/26/19 Range/Units 12:00 TSH 0.021 L (0.465-4.680) mIU/L Assessment and Plan Assessment: Syncope Positive orthostatic blood pressure Low TSH in view of hypothyroidism Low-normal vitamin B12 Parkinson disease Hypertension, uncontrolled History of hydrocephalus status post right shunt History of back surgery Plan: This is a pleasant 78 years old male who presents with syncope. Consult cardiology and neurology service already done and we will follow their recommendation. Check hemoglobin A1c, lower the dose of levothyroxine and replace B12 Labs and medication were reviewed.. Continue same treatment. Continue with symptomatic treatment. Resume home medication. Monitor lytes and vitals. DVT and GI prophylaxis. Further recommendations of the clinical course of the patient DVT prophylaxis: Subcutaneous heparin GI Prophylaxis: Pepcid PT/OT: Pending Prognosis is guarded
[2019-06-28] MEDS: LEVOTHYROXINE 100 MCG TAB PO SCH (06:13)
[2019-06-28 07:06] VITALS: RESP 18
[2019-06-28] MEDS: STALEVO PO SCH ×2 (08:09→20:33)
[2019-06-28] MEDS: CARBIDOPA-LEVODOPA ER 50-200MG 1 EACH TABLET.ER PO SCH ×3 (08:10→22:33)
[2019-06-28] MEDS: LISINOPRIL 10 MG TAB PO SCH (08:10)
[2019-06-28] MEDS: amLODIPine 5 MG TAB PO SCH (08:10)
[2019-06-28] MEDS: ASPIRIN 81 MG PO SCH (08:10)
[2019-06-28] MEDS: CLOPIDOGREL 75 MG TAB PO SCH (08:10)
[2019-06-28] MEDS: METOPROLOL TARTRATE 25 MG TAB PO SCH ×2 (08:10→20:33)
[2019-06-28] MEDS: CYANOCOBALAMIN 1,000 MCG/ML 1 ML VIAL IM SCH (08:10)
--- NOTE | 2019-06-28 10:06 | P.PN ---
Subjective Progress Note Date: 06/28/19 The patient is currently resting comfortably Jese sitting at the side of the bed. He states he has not had any more dizziness or lightheadedness since his evaluation yesterday. He denies any chest pain, chest pressure, shortness of breath, palpitations, or vertigo. GENERAL: Well-appearing, well-nourished and in no acute distress. NECK: Supple without JVD or thyromegaly. LUNGS: Breath sounds clear to auscultation bilaterally. Respiration equal and unlabored. No wheezes, rales or rhonchi. HEART: Regular rate and rhythm. Systolic murmur. No rubs or gallops. S1 and S2 heard. EXTREMITIES: Normal range of motion, no edema. No clubbing or cyanosis. Peripheral pulses intact and strong. Telemetry showed sinus rhythm without bradycardia overnight Vital signs: Patient becomes hypertensive throughout the nighttime hours. Systolic blood pressures range from the 130s to 190 systolic. Pulse rate in the 60s. Afebrile. Oxygen saturation greater than 96% on room air Impression/assessment: #1 syncope, likely related to orthostatic hypotension #2 coronary artery disease, ACS ruled out, continue Plavix #3 hypertension with orthostatic hypotension, increased evening dose of a mlodipine to prevent a.m. hypertension #4 hypothyroidism #5 dyslipidemia, on statin therapy Plan: Increase p.m. dose of amlodipine to 7-1/2 mg. Continue adequate hydration and compression socks. Patient is cleared to be discharged from the cardiac standpoint. Objective - Vital Signs Vital signs: Vital Signs Temp 97.6 F 06/28/19 07:00 Pulse 55 L 06/28/19 07:00 Resp 18 06/28/19 07:00 BP 180/74 06/28/19 07:00 Pulse Ox 97 06/28/19 07:00 Intake & Output 06/27/19 06/28/19 06/28/19 18:59 06:59 18:59 Intake Total 1280 0 Balance 1280 0 Weight 90.1 kg Intake: Oral 680 0 Other 600 Other: Voiding Method Toilet Toilet Toilet # Voids 1 - Labs CBC & Chem 7: 06/26/19 12:00 06/26/19 12:00
--- NOTE | 2019-06-28 12:08 | P.PN ---
Subjective This is a pleasant 78 years old male with past medical history of hypertension, hyperlipidemia, Parkinson disease, hydrocephalus, back surgery uses marijuana. Presents because of periods of unresponsiveness. Patient was having his breakfast this morning on the table while he was sitting he became unresponsive, still breathing per family at bedside, he said he was leaning backwards,continuous opening I, he was pale, and incoherent, not breathing for sometimes followed by shallow breathing. Episodes lasted for a few minutes, with estimated is about 25 minutes altogether. She checked her blood pressure during the episodes it was 94/32, by the time EMS arrived his oxygen saturation was 97% and blood pressure was 101/52, at that time patient woke up. Patient himself says he cannot remember anything, as less than Remember he was sitting and next thing the EMS personnel around. Patient denies chest pain or dyspnea or coughing. No bowel changes, no diarrhea or vomiting. He sees Dr. Waite and he had a cardiac cath about 2 weeks ago which was unremarkable except for 20% blockage. Last April 13/[address] Walker office visit neurologist when he was noticed to have low blood pressure under visit to the hospital. He denies Smoking or alcohol abuse At baseline walks using a cane Vitals stable, heart rate is 57-58, blood pressure 156/72. Labs including CBC, INR, BMP and liver enzymes were unremarkable. CT of the brain: No acute process, a shunt into place with no change from previous exam. Chest x-ray: No acute process. The EKG in the system. In the emergency room he got 1 L of normal saline 06/27/2019 Patient has no more episodes of dizziness or syncope. However when we checked orthostasis he was was positive patient has been evaluated by neurologist and he made some changes to his medication, please refer to his note for more details. And recommended EEG which is pending. Cardiology team also evaluated the patient. His TSH is low while T4 is normal. We going to lower his dose of levothyroxine 125 down to 100 g daily 06/28/2019 Cardiology team recommended patient increase his amlodipine to 7.5 mg at night and to continue with encourage hydration and compression stocking. Cardiology team cleared the patient. We going to check orthostatic vitals again. Compression of stockings haven't been a provided., I discussed with the staff it looks like the EEG has been done which is confirmed also by the patient and family, however result is still pending. PT came to see the patient a day but they thought his functioning well, when I talked to the patient and family they want to see a physical therapist again sewing going to reconsult. Hemoglobin A1c was normal, also lower the dose of levothyroxine Objective - Vital Signs Vital signs: Vital Signs Temp 97.3 F L 06/28/19 11:35 Pulse 57 L 06/28/19 11:35 Resp 18 06/28/19 11:35 BP 120/67 06/28/19 11:35 Pulse Ox 98 06/28/19 11:35 Intake & Output 06/27/19 06/28/19 06/28/19 18:59 06:59 18:59 Intake Total 1280 0 240 Balance 1280 0 240 Weight 90.1 kg Intake: Oral 680 0 240 Other 600 Other: Voiding Method Toilet Toilet Toilet # Voids 1 - Exam GENERAL: The patient is alert and oriented x3, not in any acute distress. Well developed, well nourished. HEENT: Pupils are round and equally reacting to light. EOMI. No scleral icterus. No conjunctival pallor. Normocephalic, atraumatic. No pharyngeal erythema. No thyromegaly. CARDIOVASCULAR: S1 and S2 present. No murmurs, rubs, or gallops. PULMONARY: Chest is clear to auscultation, no wheezing or crackles. ABDOMEN: Soft, nontender, nondistended, normoactive bowel sounds. No palpable organomegaly. MUSCULOSKELETAL: No joint swelling or deformity. EXTREMITIES: No cyanosis, clubbing, or pedal edema. NEUROLOGICAL: Gross neurological examination did not reveal any focal deficits. SKIN: No rashes. No petechiae - Labs CBC & Chem 7: 06/26/19 12:00 06/26/19 12:00 Assessment and Plan Assessment: Syncope Positive orthostatic blood pressure Low TSH in view of hypothyroidism Low-normal vitamin B12 Parkinson disease Hypertension, uncontrolled History of hydrocephalus status post right shunt History of back surgery Plan: This is a pleasant 78 years old male who presents with syncope. Follow-up recommendations by cardiology and neurology service already done and we will follow their recommendation. , lower the dose of levothyroxine and replace B12. Following the result of EEG. re-consult physical therapy Labs and medication were reviewed.. Continue same treatment. Continue with symptomatic treatment. Resume home medication. Monitor lytes and vitals. DVT and GI prophylaxis. Further recommendations of the clinical course of the patient DVT prophylaxis: Subcutaneous heparin GI Prophylaxis: Pepcid PT/OT: Pending Prognosis is guarded
[2019-06-28 13:29] LABS: T4, Free (Free Thyroxine) 1.32 ng/dL (0.78-2.19)
[2019-06-28] MEDS: DOCUSATE 100 MG CAP PO SCH (16:32)
[2019-06-28] MEDS: ACETAMINOPHEN TAB 325 MG TAB PO PRN (19:39)
[2019-06-28] MEDS: NON FORMULARY DRUG (Mirabegron [Myrbetriq] 50 MG) PO SCH (20:33)
[2019-06-28] MEDS: MELATONIN 3 MG TABLET PO SCH (20:33)
[2019-06-28] MEDS: ATORVASTATIN 20 MG TAB PO SCH (20:33)
[2019-06-28] MEDS: RIVASTIGMINE 4.6MG/24HR PATCH TRANSDERM SCH (22:33)
[2019-06-29] MEDS: LEVOTHYROXINE 100 MCG TAB PO SCH (06:48)
[2019-06-29 07:36] LABS: T4, Free (Free Thyroxine) 1.22 ng/dL (0.78-2.19)
[2019-06-29] MEDS: LISINOPRIL 10 MG TAB PO SCH (09:07)
[2019-06-29] MEDS: STALEVO PO SCH (09:07)
[2019-06-29] MEDS: amLODIPine 5 MG TAB PO SCH (09:07)
[2019-06-29] MEDS: CLOPIDOGREL 75 MG TAB PO SCH (09:07)
[2019-06-29] MEDS: ASPIRIN 81 MG PO SCH (09:07)
[2019-06-29] MEDS: METOPROLOL TARTRATE 25 MG TAB PO SCH (09:07)
[2019-06-29] MEDS: CYANOCOBALAMIN 1,000 MCG/ML 1 ML VIAL IM SCH (09:08)
[2019-06-29] MEDS: CARBIDOPA-LEVODOPA ER 50-200MG 1 EACH TABLET.ER PO SCH (09:08)
[2019-06-29 12:54] VITALS: BP 117/62; PULSE 58; TEMP 97.7
--- NOTE | 2019-06-29 17:23 | P.DS ---
Providers Date of admission: 06/28/19 14:20 Expected date of discharge: 06/29/19 Attending physician: Sathish Jc MD Consults: 06/26/19 13:22 Consult Physician Routine Consulting Provider: Munir Dumont Consult Reason/Comments: syncope Do you want consulting provider notified?: Yes Consult Physician Routine Consulting Provider: Pb Waite Consult Reason/Comments: syncope Do you want consulting provider notified?: Yes Primary care physician: Sathish Jc MD Hospital Course: Final Diagnoses: Syncope secondary to Positive orthostatic blood pressure, resolved Low TSH in view of hypothyroidism, dose adjusted Parkinson disease Hypertension, controlled History of hydrocephalus status post right shunt History of back surgery Hospital course:This is a pleasant 78 years old male with past medical history of hypertension, hyperlipidemia, Parkinson disease, hydrocephalus, back surgery uses marijuana. Presents because of periods of unresponsiveness. Patient was having his breakfast this morning on the table while he was sitting he became unresponsive, still breathing per family at bedside, he said he was leaning backwards,continuous opening I, he was pale, and incoherent, not breathing for sometimes followed by shallow breathing. Episodes lasted for a few minutes, with estimated is about 25 minutes altogether. She checked her blood pressure during the episodes it was 94/32, by the time EMS arrived his oxygen saturation was 97% and blood pressure was 101/52, at that time patient woke up. Patient himself says he cannot remember anything, as less than Remember he was sitting and next thing the EMS personnel around. Patient denies chest pain or dyspnea or coughing. No bowel changes, no diarrhea or vomiting. He sees Dr. Waite and he had a cardiac cath about 2 weeks ago which was unremarkable except for 20% blockage. Last April 13/[address] Walker office visit neurologist when he was noticed to have low blood pressure under visit to the hospital. He denies Smoking or alcohol abuse At baseline walks using a cane Vitals stable, heart rate is 57-58, blood pressure 156/72. Labs including CBC, INR, BMP and liver enzymes were unremarkable. CT of the brain: No acute process, a shunt into place with no change from previous exam. Chest x-ray: No acute process. The EKG in the system. In the emergency room he got 1 L of normal saline Evaluated by cardiology and neurology. RONAL inhibitor changed to at bedtime dosing instead of in the a.m.. Received gentle IV fluid hydration, compression stockings. Sinemet decreased from 4 times a day to 3 times a day as per neurology. Evaluated by physical therapy, Home / home care recommended at discharge. Significant clinical improvement. Patient is being discharged home in a stable condition with guarded prognosis. - Exam GENERAL: The patient is alert and oriented x3, not in any acute distress. CARDIOVASCULAR: S1 and S2 present. No murmurs, rubs, or gallops. PULMONARY: Chest is clear to auscultation, no wheezing or crackles. ABDOMEN: Soft, nontender, nondistended, normoactive bowel sounds. NEUROLOGICAL: Gross neurological examination did not reveal any focal deficits. The impression and plan of care has been dictated as directed. : I performed a history and examination of this patient, discussed the same with the dictator. I agree with the dictator's note ,documented as a scribe. Any additional findings or plans will be noted. Patient Condition at Discharge: Stable Plan - Discharge Summary New Discharge Prescriptions: New amLODIPine [Norvasc] 5 mg PO DAILY #30 tab Levothyroxine Sodium [Synthroid] 100 mcg PO DAILY@0630 #30 tab Continue Lactobacillus Rhamnosus GG [Culturelle] 1 cap PO DAILY@1330 Clopidogrel Bisulfate [Plavix] 75 mg PO DAILY Mirabegron [Myrbetriq] 50 mg PO HS Docusate [Colace] 100 mg PO DAILY@1800 Aspirin [Adult Low Dose Aspirin EC] 81 mg PO DAILY Atorvastatin [Lipitor] 20 mg PO HS Docusate [Colace] 200 mg PO QAM Metoprolol Tartrate [Lopressor] 25 mg PO BID #60 tablet Carbidopa/Levodopa/Entacapone [Stalevo 200] 1 tab PO BID Rivastigmine 9.5MG/24Hr Patch [Exelon 9.5MG/24Hr Patch] 1 patch TRANSDERM Q24HR Alendronate Sodium [Fosamax] 70 mg PO WE Changed Lisinopril [Zestril] 10 mg PO HS #30 tab Carbidopa-Levodopa ER 50-200Mg [Sinemet CR 50-200 mg] 1 tab PO TID #0 Discontinued Levothyroxine Sodium [Synthroid] 125 mcg PO DAILY Discharge Medication List Aspirin [Adult Low Dose Aspirin EC] 81 mg PO DAILY 04/27/19 [History] Atorvastatin [Lipitor] 20 mg PO HS 04/27/19 [History] Clopidogrel Bisulfate [Plavix] 75 mg PO DAILY 04/27/19 [History] Docusate [Colace] 100 mg PO DAILY@1800 04/27/19 [History] Docusate [Colace] 200 mg PO QAM 04/27/19 [History] Lactobacillus Rhamnosus GG [Culturelle] 1 cap PO DAILY@1330 04/27/19 [History] Mirabegron [Myrbetriq] 50 mg PO HS 04/27/19 [History] Metoprolol Tartrate [Lopressor] 25 mg PO BID #60 tablet 04/30/19 [Rx] Carbidopa/Levodopa/Entacapone [Stalevo 200] 1 tab PO BID 06/08/19 [History] Rivastigmine 9.5MG/24Hr Patch [Exelon 9.5MG/24Hr Patch] 1 patch TRANSDERM Q24HR 06/08/19 [History] Alendronate Sodium [Fosamax] 70 mg PO WE 06/26/19 [History] Carbidopa-Levodopa ER 50-200Mg [Sinemet CR 50-200 mg] 1 tab PO TID #0 06/29/19 [Rx] Levothyroxine Sodium [Synthroid] 100 mcg PO DAILY@0630 #30 tab 06/29/19 [Rx] Lisinopril [Zestril] 10 mg PO HS #30 tab 06/29/19 [Rx] amLODIPine [Norvasc] 5 mg PO DAILY #30 tab 06/29/19 [Rx] Follow up Appointment(s)/Referral(s): Pb Waite MD [STAFF PHYSICIAN] - 07/06/19 2:45 pm Sathish Jc MD [Primary Care Provider] - 3 Days [facility], [NON-STAFF] - 1-2 Days Devan Walker MD [Medical Doctor] - 07/03/19 10:20 am (Appointment made with Naren ) Ambulatory/Diagnostic Orders: Complete Blood Count w/diff [LAB.AMB] Time Frame: 3 Days, Location: None Selected Activity/Diet/Wound Care/Special Instructions: Pending neurology clearance and final DC recommendations. Send compression stockings home with patient Discharge Disposition: HOME SELF-CARE
[2019-07-01] MEDS ORDERED: NON FORMULARY DRUG (Alendronate Sodium [Fosamax] 70 MG) PO SCH (09:00)
--- NOTE | 2019-07-15 15:57 | EEG ---
ELECTROENCEPHALOGRAM REPORT DATE OF SERVICE: 06/27/2019. PREAMBLE: This is a 78-year-old male with episode of unresponsiveness and irregular breathing. The patient also had facial droop with abnormal tongue movement. The patient also has spells of zoning out. This study is performed to evaluate for any epileptiform activity. EEG FINDINGS: A routine 21-channel awake digital EEG recording was accomplished utilizing the 10/20 international system with bipolar and referential montages. The background consists of well-developed, moderately well regulated, moderate voltage activity in 6-7 Hz theta. Background is posterior-dominant and seems to be very minimally reactive to eye opening and closing. Intermittent periods of 2-3 Hz generalized delta is also seen. Some frontal intermittent rhythmic delta activity was also seen. Different stages of sleep were not seen. Photic driving response was not seen. No focal or generalized epileptiform activity was seen. EKG rhythm lead revealed significant arrhythmia. IMPRESSION: This is a mildly abnormal EEG due to background slowing of mild degree. This is suggestive of generalized cerebral dysfunction, as can be seen with toxic metabolic encephalopathy or due to diffuse structural brain abnormality. No epileptiform activity was seen. EKG channel lead revealed arrhythmia. Clinical correlation is recommended. MMODL / IJN: [id number] /
== END 2019-06-29 14:54 | disposition home or self-care (01) ==
LOC: EC 11:35 → 1SOBS 13:20 → UNDOADMOB 13:20 → 1SOBS 14:12 → OBSVTOIN 06-28 14:20 → INTOOBSV 06-28 14:20 → UNDODISIN 06-29 14:54
PROVIDERS: ADMIT Family Medicine; ATTEND Family Medicine
DX: I95.1 Orthostatic hypotension (principal); E03.9 Hypothyroidism, unspecified; E78.5 Hyperlipidemia, unspecified; G20 Parkinson's disease; I10 Essential (primary) hypertension; I25.10 Atherosclerotic heart disease of native coronary artery without angina pectoris; I44.0 Atrioventricular block, first degree; W06.XXXA Fall from bed, initial encounter; Z79.02 Long term (current) use of antithrombotics/antiplatelets; Z79.82 Long term (current) use of aspirin; Z79.83 Long term (current) use of bisphosphonates; Z79.890 Hormone replacement therapy; Z79.899 Other long term (current) drug therapy; Z87.891 Personal history of nicotine dependence; Z98.2 Presence of cerebrospinal fluid drainage device; F12.90 Cannabis use, unspecified, uncomplicated; Z88.5 Allergy status to narcotic agent
CPT/HCPCS: 93005 ×2; 96372 ×3; 96374; 96361; 99285; 36415; 95816; 97162; 84439 ×3; 80053; 84443 ×3; 82607; 82746; 83735; 84484 ×2; 85025; 85610; 85730; 81003; 83036; 71046; 70450; G0378 ×4; J0360; J3420 ×3; 96360

== ENCOUNTER 2019-10-09 07:51 | Emergency (ER) | payer MEDICARE ==
[~2019-10-09 07:51] MED LIST changes: -ALPRAZolam 0.25 MG TAB PO PRN; -ALPRAZolam 0.5 MG TAB PO PRN; +CALCIUM GLUCONATE 1 GM/10 ML VIAL ONE; +EPINEPHrine 10 ML SYRINGE (0.1 MG/ML) ONE; -NITROGLYCERIN SL TABS 0.4 MG TAB SUBLINGUAL PRN; +SODIUM BICARB 8.4% 50 ML SYR (1 MEQ/ML) ONE; -SODIUM CHLORIDE 0.9% 1,000 ML in EMPTY BAG 1 BAG IV ONE
[2019-10-09] MEDS ORDERED: SODIUM CHLORIDE 0.9% 1,000 ML IV STA ×2 (07:54→09:00)
[2019-10-09 08:22] LABS: Anisocytosis Slight; HCT 45.4 % (39.0-53.0); Hypochromasia Marked; MCH 28.3 pg (25.0-35.0); MCHC 28.6 g/dL (31.0-37.0); MCV 98.8 fL (80.0-100.0); Macrocytosis Slight; Mean Platelet Volume 9.4; Platelet Count 227 k/uL (150-450); RBC 4.59 m/uL (4.30-5.90)
[2019-10-09 08:35] LABS: Calcium 10.6 mg/dL (8.4-10.2); Potassium 5.3 mmol/L (3.5-5.1); Total Bilirubin 0.8 mg/dL (0.2-1.3); Total Protein 5.4 g/dL (6.3-8.2)
--- NOTE | 2019-10-09 08:35 | XR ---
EXAMINATION TYPE: XR chest 1V portable DATE OF EXAM: 10/09/2019 COMPARISON: 06/26/2019 HISTORY: Unresponsive TECHNIQUE: Single frontal view of the chest is obtained. FINDINGS: Low lung volumes. Right mainstem intubation. Recommendation is for retraction of the endot lucero tube approximately 3 cm. Platelike atelectasis of the left costophrenic angle. Enlarged cardi omediastinal silhouette. Moderate degenerative change of the spine. Catheter overlies the right inter nal jugular region largely obscured as seen on the prior of 06/26/2019. IMPRESSION: Right mainstem bronchial intubation. Recommendation is for retraction 3 cm. Left basal a telectasis and hypoventilatory lungs.
[2019-10-09 08:40] LABS: INR 1.3 (<1.2); Partial Thromboplastin Time 47.4 sec (22.0-30.0)
[2019-10-09 08:47] LABS: Magnesium 5.5 mg/dL (1.6-2.3)
[2019-10-09] MEDS ORDERED: CALCIUM CHLORIDE 100 MG/ML 10 ML SYRINGE IVP STA (08:56)
[2019-10-09 09:05] LABS: Band Neutrophils % 11 %; Lymphocytes # (M) 2.11 k/uL (1.0-4.8); Metamyelocytes # (M) 0.48 k/uL (0); Metamyelocytes % 5 %; Monocytes # (M) 0.58 k/uL (0-1.0); Myelocytes % 1 %; Neutrophils % (M) 56 %; Nucleated Red Blood Cells 1 /100 WBC (0-0); Total Cells Counted 200; WBC 9.6 k/uL (3.8-10.6)
[2019-10-09 09:07] LABS: Poikilocytosis (M) Present
[2019-10-09 09:08] LABS: Toxic Granulation Present
--- NOTE | 2019-10-09 09:15 | CT ---
EXAMINATION TYPE: CT brain wo con DATE OF EXAM: 10/09/2019 COMPARISON: 06/26/2019 HISTORY: Cardiac arrest CT DLP: 1099.4 mGycm Automated exposure control for dose reduction was used. TECHNIQUE: CT scan of the head is performed without contrast. FINDINGS: There is no acute intracranial hemorrhage or midline shift identified. The degree of sulc al prominence in comparison to the recent exam of 06/26/2019 is less pronounced. Therefore a mild degr ee of cerebral edema is suspected. There is low-attenuation in the periventricular white matter cons istent with chronic small vessel ischemic change. There is an old lacunar injury of the left lentifor m nucleus that appears CSF attenuated and present on the prior. Right frontal approach intraventricular shunt terminates in the right lateral ventricle near the sept um unchanged in position. Ventricular size is similar to the prior of 06/26/2019 with no new hydroceph alus. There is severe mucosal thickening of the sphenoid sinus with air-fluid levels and air-fluid le vels in the maxillary sinuses indicative of acute sinusitis. Air-fluid levels are also seen with mode rate mucosal thickening in the ethmoid sinuses. Frontal sinuses are well aerated. Findings are new fr om the prior of 06/26/2019. Mastoid air cells are well aerated. IMPRESSION: 1. Suspected mild degree of cerebral edema as the degree of sulcal prominence in comparison to the re cent prior of 06/26/2019 is less pronounced. This could relate hypoxia given the recent cardiac arrest . 2. No acute intracranial hemorrhage or midline shift. 3. No new hydrocephalus in comparison to the prior with stable positioning of a right frontal approac h intraventricular device. 4. Acute severe near pansinusitis.
--- NOTE | 2019-10-09 09:24 | CT ---
EXAMINATION TYPE: CT chest angio for PE DATE OF EXAM: 10/09/2019 COMPARISON: Chest x-ray of the same date HISTORY: Cardiac arrest CT DLP: 414.4 mGycm. Automated Exposure Control for Dose Reduction was Utilized. CONTRAST: CTA scan of the thorax is performed without and with IV Contrast, patient injected with 100 ml mL of Isovue 370, pulmonary embolism protocol. MIP Images are created on CT scanner and reviewed. FINDINGS: LUNGS: Endotracheal tube has been retracted terminating at the level of the aortic arch above the car valentino. There are scattered groundglass opacities such as centrally in the upper lobes on image 30 and a t the lung bases. More focal consolidations are seen at the lung bases with enhancement suggesting at electasis rather than pneumonia. Atelectasis is seen along the interlobar fissures. Very trace pleura l effusions. MEDIASTINUM: There is satisfactory enhancement of the pulmonary artery and its branches, there is no CT evidence for pulmonary embolism. There are no greater than 1 cm hilar or mediastinal lymph nodes. The heart is enlarged with mild pericardial effusion. 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 The esophagus is shifted to the right of midline. OTHER: Lobular density in the left upper quadrant is only partially imaged and could represent bowel or splenosis. 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 Retroareolar mild gynecomasti a bilaterally. IMPRESSION: 1. No CT evidence of pulmonary embolus. 2. Cardiomegaly with mild pericardial effusion. 3. Bibasilar opacities enhance compatible with atelectasis rather than pneumonia. Other scattered are as of dependent atelectasis are seen with few groundglass opacities that may also represent atelectas is or fluid overload. Very trace pleural effusions seen.
[2019-10-09] MEDS ORDERED: cefTRIAXone IN SWFI 1,000 MG/10 ML SYRINGE IVP STA (09:32)
[2019-10-09 09:42] LABS: ABG Base Excess -28.4 mmol/L; ABG Oxygen Saturation 94.4 % (94-97); ABG PO2 149 mmHg (83-108); ABG TCO2 11 mmol/L (19-24); Allen Test Performed? Yes
[2019-10-09 09:47] LABS: ABG HCO3 8 mmol/L (21-25); ABG PCO2 74 mmHg (35-45); ABG PH <6.80 (7.35-7.45)
--- NOTE | 2019-10-09 09:48 | ED ---
General Adult HPI - General Chief complaint: Cardiac Arrest/CPR Stated complaint: cardiac arrest Time Seen by Provider: 10/09/19 07:51 Source: patient, EMS, RN notes reviewed, old records reviewed Mode of arrival: EMS Limitations: altered mental status - History of Present Illness Initial comments: This is a 78-year-old male who presents to the emergency department after cardiac arrest. According to the fire department they got a call that the patient had a cardiac arrest at 6:54 AM states she found the patient down about [phone]. When EMS arrived the patient was in asystole. Began CPR became tube and the patient and started breathing for him. Patient went into PEA after about 15 minutes and just prior to arrival at the emergency department patient had a return of spontaneous circulation. was not here initially when she arrived she did tell us that he had been feeling fine yesterday except for being mildly constipated. Patient had no recent fever chills or cough she states she was having no complaints of distress and in fact yesterday used his exercise bike. While in the emergency department patient again lost his pulses and ACS protocol was followed. - Related Data Home Medications Medication Instructions Recorded Confirmed Aspirin [Adult Low Dose Aspirin EC] 81 mg PO DAILY 04/27/19 06/26/19 Atorvastatin [Lipitor] 20 mg PO HS 04/27/19 06/26/19 Clopidogrel Bisulfate [Plavix] 75 mg PO DAILY 04/27/19 06/26/19 Docusate [Colace] 100 mg PO DAILY@1800 04/27/19 06/26/19 Docusate [Colace] 200 mg PO QAM 04/27/19 06/26/19 Lactobacillus Rhamnosus GG 1 cap PO DAILY@1330 04/27/19 06/26/19 [Culturelle] Mirabegron [Myrbetriq] 50 mg PO HS 04/27/19 06/26/19 Carbidopa/Levodopa/Entacapone 1 tab PO BID 06/08/19 06/26/19 [Stalevo 200] Rivastigmine 9.5MG/24Hr Patch 1 patch TRANSDERM Q24HR 06/08/19 06/26/19 [Exelon 9.5MG/24Hr Patch] Alendronate Sodium [Fosamax] 70 mg PO WE 06/26/19 06/26/19 Previous Rx's Medication Instructions Recorded Metoprolol Tartrate [Lopressor] 25 mg PO BID #60 tablet 04/30/19 Carbidopa-Levodopa ER 50-200Mg 1 tab PO TID #0 06/29/19 [Sinemet CR 50-200 mg] Levothyroxine Sodium [Synthroid] 100 mcg PO DAILY@0630 #30 tab 06/29/19 Lisinopril [Zestril] 10 mg PO HS #30 tab 06/29/19 amLODIPine [Norvasc] 5 mg PO DAILY #30 tab 06/29/19 Allergies Allergy/AdvReac Type Severity Reaction Status Date / Time morphine Allergy Hallucinati Verified 06/26/19 13:59 ons Review of Systems ROS Statement: Those systems with pertinent positive or pertinent negative responses have been documented in the HPI. ROS Other: All systems not noted in ROS Statement are negative. Past Medical History Past Medical History: Hyperlipidemia, Hypertension Additional Past Medical History / Comment(s): parkinson,hx hydrocephalus History of Any Multi-Drug Resistant Organisms: None Reported Past Surgical History: Back Surgery, Orthopedic Surgery Additional Past Surgical History / Comment(s): cerebral shunt 2018 Past Anesthesia/Blood Transfusion Reactions: No Reported Reaction Additional Past Anesthesia/Blood Transfusion Reaction / Comment(s): no hx blood transfusion Past Psychological History: No Psychological Hx Reported Smoking Status: Former smoker - Past Family History Brother(s) Additional Family Medical History / Comment(s): exposed to agent orgnae Father History Unknown: Yes Mother Additional Family Medical History / Comment(s): passed in 2015 of old age at 95 General Exam - General Exam Comments Initial Comments: GENERAL: Patient is well-developed and well-nourished. Patient is nontoxic and well- hydrated. Patient is unresponsive. ENT: Neck is soft and supple. Oropharynx is clear. Moist mucous membranes. Neck has full range of motion without eliciting any pain. EYES: The sclera were anicteric and conjunctiva were pink and moist. Extraocular move ments were intact and pupils were equal round and reactive to light. Eyelids were unremarkable. PULMONARY: Unlabored respirations. Good breath sounds bilaterally. No audible rales rhonchi or wheezing was noted. CARDIOVASCULAR: There is a regular rate and rhythm without any murmurs gallops or rubs. ABDOMEN: Soft and nontender with normal bowel sounds. SKIN: Skin is clear with no lesions or rashes and otherwise unremarkable. NEUROLOGIC: Patient is a patient is unresponsive MUSCULOSKELETAL: Unable to assess PSYCHIATRIC: Unable to assess Limitations: altered mental status Course Vital Signs 10/09/19 07:52 Temperature 97.6 F Pulse Rate 98 Respiratory 16 Rate Blood Pressure 100/83 O2 Sat by Pulse 93 L Oximetry Medical Decision Making - Medical Decision Making CT of the brain shows some edema probably secondary to hypoxia. CT of the chest showed no PE. Some atelectasis in the lungs. An ABG was obtained which showed a pH of 6.66 and pCO2 of 73 pO2 of 149 and a bicarb of 8.4. Patient also had an elevated magnesium and we gave the patient calcium gluconate. Patient lost pulses in the emergency department 3 times was put on Levophed and CPR was done every time he lost his pulses and after 1 epinephrine his heart rate and pulses came back. Anesthesia came down and intubated the patient. Dr. Peraza came down and saw the patient. I spoke to the did not want any further interventions this point. Patient's pulse rate started to slow patient lost pulses I pronounced the patient at 1024. I spoke with the medical auditor Liz Rupesh. I also spoke with the son of the patient. Patient's EKG shows atrial fibrillation at 100 bpm QRS is 94 QT interval 308 QTC is 397. EKG shows no ST segment elevation or depression - Lab Data Result diagrams: 10/09/19 08:06 10/09/19 08:06 Lab Results 10/09/19 10/09/19 10/09/19 Range/Units 08:06 08:06 08:06 WBC 9.6 (3.8-10.6) k/uL RBC 4.59 (4.30-5.90) m/uL Hgb 13.0 (13.0-17.5) gm/dL Hct 45.4 (39.0-53.0) % MCV 98.8 (80.0-100.0) fL MCH 28.3 (25.0-35.0) pg MCHC 28.6 L (31.0-37.0) g/dL RDW 17.0 H (11.5-15.5) % Plt Count 227 (150-450) k/uL Neutrophils % Not Reportable Neutrophils % (Manual) 56 % Band Neutrophils % 11 % Lymphocytes % Not Reportable Lymphocytes % (Manual) 22 % Monocytes % Not Reportable Monocytes % (Manual) 6 % Eosinophils % Not Reportable Basophils % Not Reportable Metamyelocytes % 5 % Myelocytes % 1 % Neutrophils # Not Reportable Neutrophils # (Manual) 6.40 (1.3-7.7) k/uL Lymphocytes # Not Reportable Lymphocytes # (Manual) 2.11 (1.0-4.8) k/uL Monocytes # Not Reportable Monocytes # (Manual) 0.58 (0-1.0) k/uL Eosinophils # Not Reportable Basophils # Not Reportable Metamyelocytes # (Man) 0.48 H (0) k/uL Myelocytes # (Manual) 0.10 H (0) k/uL Nucleated RBCs 1 H (0-0) /100 WBC Manual Slide Review Performed Toxic Granulation Present Hypochromasia Marked Poikilocytosis (manual Present Anisocytosis Slight Macrocytosis Slight PT 13.0 H (9.0-12.0) sec INR 1.3 H (<1.2) APTT 47.4 H (22.0-30.0) sec Sample Site ABG pH (7.35-7.45) ABG pCO2 (35-45) mmHg ABG pO2 (83-108) mmHg ABG HCO3 (21-25) mmol/L ABG Total CO2 (19-24) mmol/L ABG O2 Saturation (94-97) % ABG Base Excess mmol/L John Test VBG pH (7.31-7.41) VBG pCO2 (37-51) mmHg VBG HCO3 (24-28) mmol/L FiO2 % Sodium 149 H (137-145) mmol/L Potassium 5.3 H (3.5-5.1) mmol/L Chloride 111 H (98-107) mmol/L Carbon Dioxide 10 L (22-30) mmol/L Anion Gap 28 mmol/L BUN 37 H (9-20) mg/dL Creatinine 3.14 H (0.66-1.25) mg/dL Est GFR (CKD-EPI)AfAm 21 (>60 ml/min/1.73 sqM) Est GFR (CKD-EPI)NonAf 18 (>60 ml/min/1.73 sqM) Glucose 205 H (74-99) mg/dL Calcium 10.6 H (8.4-10.2) mg/dL Magnesium 5.5 H* (1.6-2.3) mg/dL Total Bilirubin 0.8 (0.2-1.3) mg/dL AST 229 H (17-59) U/L ALT 39 (4-49) U/L Alkaline Phosphatase 324 H (38-126) U/L Troponin I (0.000-0.034) ng/mL Total Protein 5.4 L (6.3-8.2) g/dL Albumin 3.0 L (3.5-5.0) g/dL Coronavirus (PCR) (Not Detectd) 10/09/19 10/09/19 10/09/19 Range/Units 08:06 08:06 09:10 WBC (3.8-10.6) k/uL RBC (4.30-5.90) m/uL Hgb (13.0-17.5) gm/dL Hct (39.0-53.0) % MCV (80.0-100.0) fL MCH (25.0-35.0) pg MCHC (31.0-37.0) g/dL RDW (11.5-15.5) % Plt Count (150-450) k/uL Neutrophils % Neutrophils % (Manual) % Band Neutrophils % % Lymphocytes % Lymphocytes % (Manual) % Monocytes % Monocytes % (Manual) % Eosinophils % Basophils % Metamyelocytes % % Myelocytes % % Neutrophils # Neutrophils # (Manual) (1.3-7.7) k/uL Lymphocytes # Lymphocytes # (Manual) (1.0-4.8) k/uL Monocytes # Monocytes # (Manual) (0-1.0) k/uL Eosinophils # Basophils # Metamyelocytes # (Man) (0) k/uL Myelocytes # (Manual) (0) k/uL Nucleated RBCs (0-0) /100 WBC Manual Slide Review Toxic Granulation Hypochromasia Poikilocytosis (manual Anisocytosis Macrocytosis PT (9.0-12.0) sec INR (<1.2) APTT (22.0-30.0) sec Sample Site rrad ABG pH <6.80 L* (7.35-7.45) ABG pCO2 74 H* (35-45) mmHg ABG pO2 149 H (83-108) mmHg ABG HCO3 8 L* (21-25) mmol/L ABG Total CO2 11 L (19-24) mmol/L ABG O2 Saturation 94.4 (94-97) % ABG Base Excess -28.4 mmol/L John Test Yes VBG pH 6.78 L* (7.31-7.41) VBG pCO2 61 H (37-51) mmHg VBG HCO3 9 L* (24-28) mmol/L FiO2 100 % Sodium (137-145) mmol/L Potassium (3.5-5.1) mmol/L Chloride (98-107) mmol/L Carbon Dioxide (22-30) mmol/L Anion Gap mmol/L BUN (9-20) mg/dL Creatinine (0.66-1.25) mg/dL Est GFR (CKD-EPI)AfAm (>60 ml/min/1.73 sqM) Est GFR (CKD-EPI)NonAf (>60 ml/min/1.73 sqM) Glucose (74-99) mg/dL Calcium (8.4-10.2) mg/dL Magnesium (1.6-2.3) mg/dL Total Bilirubin (0.2-1.3) mg/dL AST (17-59) U/L ALT (4-49) U/L Alkaline Phosphatase (38-126) U/L Troponin I 0.028 (0.000-0.034) ng/mL Total Protein (6.3-8.2) g/dL Albumin (3.5-5.0) g/dL Coronavirus (PCR) (Not Detectd) 10/09/19 Range/Units 09:15 WBC (3.8-10.6) k/uL RBC (4.30-5.90) m/uL Hgb (13.0-17.5) gm/dL Hct (39.0-53.0) % MCV (80.0-100.0) fL MCH (25.0-35.0) pg MCHC (31.0-37.0) g/dL RDW (11.5-15.5) % Plt Count (150-450) k/uL Neutrophils % Neutrophils % (Manual) % Band Neutrophils % % Lymphocytes % Lymphocytes % (Manual) % Monocytes % Monocytes % (Manual) % Eosinophils % Basophils % Metamyelocytes % % Myelocytes % % Neutrophils # Neutrophils # (Manual) (1.3-7.7) k/uL Lymphocytes # Lymphocytes # (Manual) (1.0-4.8) k/uL Monocytes # Monocytes # (Manual) (0-1.0) k/uL Eosinophils # Basophils # Metamyelocytes # (Man) (0) k/uL Myelocytes # (Manual) (0) k/uL Nucleated RBCs (0-0) /100 WBC Manual Slide Review Toxic Granulation Hypochromasia Poikilocytosis (manual Anisocytosis Macrocytosis PT (9.0-12.0) sec INR (<1.2) APTT (22.0-30.0) sec Sample Site ABG pH (7.35-7.45) ABG pCO2 (35-45) mmHg ABG pO2 (83-108) mmHg ABG HCO3 (21-25) mmol/L ABG Total CO2 (19-24) mmol/L ABG O2 Saturation (94-97) % ABG Base Excess mmol/L John Test VBG pH (7.31-7.41) VBG pCO2 (37-51) mmHg VBG HCO3 (24-28) mmol/L FiO2 % Sodium (137-145) mmol/L Potassium (3.5-5.1) mmol/L Chloride (98-107) mmol/L Carbon Dioxide (22-30) mmol/L Anion Gap mmol/L BUN (9-20) mg/dL Creatinine (0.66-1.25) mg/dL Est GFR (CKD-EPI)AfAm (>60 ml/min/1.73 sqM) Est GFR (CKD-EPI)NonAf (>60 ml/min/1.73 sqM) Glucose (74-99) mg/dL Calcium (8.4-10.2) mg/dL Magnesium (1.6-2.3) mg/dL Total Bilirubin (0.2-1.3) mg/dL AST (17-59) U/L ALT (4-49) U/L Alkaline Phosphatase (38-126) U/L Troponin I (0.000-0.034) ng/mL Total Protein (6.3-8.2) g/dL Albumin (3.5-5.0) g/dL Coronavirus (PCR) Not Detected (Not Detectd) Critical Care Time Critical Care Time: Yes Total Critical Care Time: 80 Disposition Clinical Impression: Cardiac arrest Disposition: Referrals: Sathish Jc MD [Primary Care Provider] - 1-2 days Time of Disposition: 10:28 Preliminary Cause of : Cardiac arrest
[2019-10-09 09:55] LABS: VBG PH 6.78 (7.31-7.41)
[2019-10-09 10:37] VITALS: TEMP 97.6
[2019-10-09 13:09] VITALS: BP 48/29; PULSE 35; RESP 18
== END 2019-10-09 11:59 | disposition expired ==
LOC: EC 07:51
DX: I46.9 Cardiac arrest, cause unspecified (principal); I10 Essential (primary) hypertension; E78.5 Hyperlipidemia, unspecified; G20 Parkinson's disease; I48.91 Unspecified atrial fibrillation; J98.11 Atelectasis; R79.0 Abnormal level of blood mineral; Z20.828 Contact with and (suspected) exposure to other viral communicable diseases; Z79.899 Other long term (current) drug therapy; Z79.82 Long term (current) use of aspirin; Z79.02 Long term (current) use of antithrombotics/antiplatelets; Z88.5 Allergy status to narcotic agent; Z98.2 Presence of cerebrospinal fluid drainage device; Z87.891 Personal history of nicotine dependence
CPT/HCPCS: 96374; 96375; 96361; 36415; 36600; 94002; 93005; 93306; 80053; 82805; 82803; 83735; 84484; 85025; 85610; 85730; 87635; 71045; 70450; 71275; 99291; 99292; 92950; 31500; J0696; Q9967